=== PATIENT | male | born 1955 | race Caucasian/White ===

== ENCOUNTER 2016-09-06 21:47 | Emergency (ER) | payer MEDICARE, OTHER ==
[~2016-09-06] VITALS: Ht 182.9 cm; Wt 112.5 kg
[~2016-09-06 21:47] MED LIST: ACET-704 PO; ACET650T89 PO; FURO-68 PO; GLUC-99 PO; HYDR12.58 PO; METO50TA4 PO; MULT1TAB52 PO; OXYC20TA34 PO; PREG75CA PO; TAMS0.4C97 PO; WARF3TAB7 PO; WARF6TAB PO; heart med
[2016-09-06] MEDS ORDERED: VANCOMYCIN PER PHARMACY MC ONE (22:45)
[2016-09-06] MEDS ORDERED: VANCOMYCIN 1 GM VIAL. ONE ×2 (23:24)
[2016-09-06] MEDS ORDERED: IV NORMAL SALINE 500ML 500 ML ONE (23:24)
[2016-09-06] MEDS ORDERED: IV NORMAL SALINE 500ML 0 ML ONE (23:24)
[2016-09-06] MEDS ORDERED: VANCOMYCIN 2 GM in IV NORMAL SALINE 500ML 500 ML IV ONE (23:30)
[2016-09-06 23:37] LABS: BASO # 0.1 x10^3/uL (0.0-0.2); BASO % 0 % (0-3); EOS % 0 % (0-3); HEMATOCRIT 35.8 % (39.0-53.0); HEMOGLOBIN 12.4 g/dL (13.0-17.5); LYMPH # 0.8 x10^3/uL (1.0-4.8); LYMPH % 6 % (24-48); MEAN CORPUSCULAR HEMOGLOBIN 32 pg (25-35); MEAN CORPUSCULAR HGB CONC 35 g/dL (31-37); MEAN CORPUSCULAR VOLUME 93 fL (79-100); MONO # 0.9 x10^3/uL (0.0-1.1); MONO % 6 % (0-9); NEUT # 12.9 x10^3uL (1.8-7.7); NEUT % 88 % (31-73); PLATELET COUNT 153 x10^3/uL (140-400); RED BLOOD COUNT 3.86 x10^6/uL (4.30-5.70); RED CELL DISTRIBUTION WIDTH 13.9 % (11.5-14.5); WHITE BLOOD COUNT 14.8 x10^3/uL (4.0-11.0)
[2016-09-06 23:45] LABS: ALBUMIN 3.9 g/dL (3.4-5.0); C REACTIVE PROTEIN 30.3 mg/L (0-3.3); CALCIUM 8.7 mg/dL (8.5-10.1); CREATININE 1.3 mg/dL (0.7-1.3); DIRECT BILIRUBIN 0.4 mg/dL (0.0-0.2); GFR 55.8; POTASSIUM 3.4 mmol/L (3.5-5.1); TOTAL BILIRUBIN 1.7 mg/dL (0.2-1.0); TOTAL PROTEIN 7.3 g/dL (6.4-8.2)
[2016-09-07] MEDS ORDERED: HYDR-971 PO (00:16)
[2016-09-07] MEDS ORDERED: DOXY100T PO (00:16)
--- NOTE | 2016-09-07 00:19 | PHYS DOC ---
General Chief Complaint: KNEE INJURY Stated Complaint: RT KNEE INFECTION,FEVER Time Seen by MD: 22:24 Source: patient Exam Limitations: no limitations Problems: History of Present Illness Initial Comments Pt is 61/M to ED c/o right knee pain. Pt states he scraped his right knee about a week ago, had a healing scab. Past 24 hours noted swelling/redness/pain right knee, no drainage no joint pain or pain with passive ROM. +subjective fever/malaise/chills at home, febrile on arrival 100.6 F no tachycardia other VSS. No prearrival treatment, Td up to date, pt has h/o MRSA in past. PCP Dr Scott Onset: other Severity: moderate Pain/Injury Location: right knee Method of Injury: other Modifying Factors: worse with jarring, worse with movement, improves with rest Allergies: Coded Allergies: naproxen (Verified Allergy, Unknown, Rash, 08/31/15) Past Medical History Medical History: other (atrial fibrillation, MRSA, warfarin anticoagulation) Surgical History: pacemaker Social History Smoker: non-smoker Alcohol: none Drugs: none Review of Systems Constitutional: see HPI Respiratory: denies cough, denies shortness of breath, denies wheezing Cardiovascular: denies chest pain, denies palpitations, denies syncope Gastrointestinal: denies abdominal pain, denies nausea, denies vomiting Musculoskeletal: see HPI Skin: see HPI Psychiatric/Neurological: denies headache, denies numbness, denies paresthesia , denies weakness Physical Exam General Appearance: WD/WN, no apparent distress HEENT: normal ENT inspection Neck: non-tender, supple Cardiovascular/Respiratory: normal peripheral pulses, no respiratory distress Back: no CVA tenderness, no vertebral tenderness Knees: right knee normal range of motion, right knee other (cellulitic changes ant right knee with erythema/induration, healing scabbed lesion no purulence/ fluctuance. Painless active/passive ROM no bony TTP or palpable bone deformity) Neurologic/Tendon: normal sensation, normal motor functions, normal tendon functions, responds to pain, no evidence tendon injury Psychiatric: alert, oriented x 3 Skin: warm/dry (R knee as above) Orders, Labs, Meds R Knee: images interp by me, no acute osseous abnormality Leukocytosis noted, otherwise reassuring labs. I discussed tx options, specifically I discussed hospital admission for 24 h observation and IV antibiotics. Case could be made for inpt and outpt tx if good f/u. Pt refuses inpt tx, will f/u Dr Scott tomorrow requests discharge. Departure Time of Disposition: 00:17 Disposition: 01 HOME, SELF-CARE Diagnosis: R knee cellulitis, h/o MRSA Condition: GOOD Patient Instructions: Cellulitis, [id number], MRSA Infection, , Easy-to -Read Additional Instructions: Rest, no strenuous activity. Warm compresses 4 times daily. Activity as tolerated. Rx: doxycycline, norco 5mg #20 Take meds with food. Follow up with Dr Scott 09/08 for recheck. Return to ED if you change your mind and wish to be admitted, or have new/ changing symptoms. CHANTAL GILES DO September 07, 2016 00:18
[2016-09-07 00:31] LABS: SEDIMENTATION RATE 10 (0-15)
[2016-09-07 01:15] VITALS: BP 145/69
--- NOTE | 2016-09-07 07:40 | RAD ---
Right knee, 3 views, 09/06/2016: History: Laceration, injury There is moderate spurring at the knee joint and at the patellofemoral articulation. No acute fracture or dislocation is evident. There is moderate soft tissue swelling anteriorly. No definite joint effusion is seen. IMPRESSION: 1. Moderate hypertrophic degenerative change. 2. No acute bony abnormality is detected.
[2016-09-10] MEDS ORDERED: PIPE3.3734 IV (11:54)
[2016-09-10] MEDS ORDERED: LEVO500T59 PO (11:54)
[2016-09-10] MEDS ORDERED: ACET325T9 PO (11:54)
[2016-09-10] MEDS ORDERED: LIDO700A39 TD (11:54)
[2016-09-10] MEDS ORDERED: DOCU-109 PO (11:54)
[2016-09-10] MEDS ORDERED: POTA20TA4 PO (11:54)
== END 2016-09-07 01:50 | disposition home or self-care (01) ==
LOC: ER 21:47
DX: L03.115 Cellulitis of right lower limb (principal); B95.62 Methicillin resistant Staphylococcus aureus infection as the cause of diseases classified elsewhere; I48.91 Unspecified atrial fibrillation; Z95.0 Presence of cardiac pacemaker; Z88.6 Allergy status to analgesic agent
CPT/HCPCS: 36415; 73562; 80048; 80076; 83605; 85027; 85610; 85651; 85730; 86140; 87040; 96365; 96366; 99285; J3370; J7040; 96360; 96361

== ENCOUNTER 2016-09-07 16:57 | Inpatient (IN) | payer MEDICARE, OTHER ==
[~2016-09-07] VITALS: Ht 182.9 cm; Wt 115.8 kg
[~2016-09-07 16:57] MED LIST changes: +DOXY100T PO; +HYDR-971 PO
--- NOTE | 2016-09-07 17:11 | NUR ---
The patient, LILIANA SOLIZ, 61 y/o, M admitted by ALINA GUADALUPE MD, was given written information regarding hospital policies, unit procedures and contact persons. Patient admitted to room [address] Guadalupe's office and arrived on the unit at approx. 1710 via ambulation. Valuables were checked and left in room with patient. Vital signs assessed and patient oriented to the room.
[2016-09-07 17:39] LABS: BASO % 0 % (0-3); EOS # 0.1 x10^3/uL (0.0-0.7); EOS % 1 % (0-3); HEMATOCRIT 34.2 % (39.0-53.0); HEMOGLOBIN 11.6 g/dL (13.0-17.5); LYMPH # 1.1 x10^3/uL (1.0-4.8); LYMPH % 7 % (24-48); MEAN CORPUSCULAR HEMOGLOBIN 32 pg (25-35); MEAN CORPUSCULAR HGB CONC 34 g/dL (31-37); MEAN CORPUSCULAR VOLUME 93 fL (79-100); MONO # 1.3 x10^3/uL (0.0-1.1); MONO % 8 % (0-9); NEUT % 85 % (31-73); PLATELET COUNT 184 x10^3/uL (140-400); RED BLOOD COUNT 3.69 x10^6/uL (4.30-5.70); RED CELL DISTRIBUTION WIDTH 13.7 % (11.5-14.5); WHITE BLOOD COUNT 16.5 x10^3/uL (4.0-11.0)
[2016-09-07 17:48] LABS: ALBUMIN 3.7 g/dL (3.4-5.0); CALCIUM 8.5 mg/dL (8.5-10.1); CREATININE 1.2 mg/dL (0.7-1.3); GFR 61.1; POTASSIUM 3.2 mmol/L (3.5-5.1); TOTAL BILIRUBIN 1.6 mg/dL (0.2-1.0); TOTAL PROTEIN 7.3 g/dL (6.4-8.2)
[2016-09-07] MEDS: VANCOMYCIN 1.75 GM in IV NORMAL SALINE 500ML 500 ML IV SCH (18:20)
[2016-09-07 18:28] VITALS: BP 106/69
[2016-09-07 18:46] LABS: SEDIMENTATION RATE 29 (0-15)
[2016-09-07] MEDS: VANCOMYCIN PER PHARMACY MC PRN (19:11)
--- NOTE | 2016-09-07 19:11 | NUR ---
Pharmacy Vancomycin Dosing Note S:Consulted to monitor and dose vancomycin started 09/06/16. O:MARTÍNEZLILIANA Alcala is a 61 year old M with Cellulitis . Height: 6 feet, 0 inches Weight: 113.727425 kg [place] Body Weight: Adjusted Body Weight: Dosing Weight: Actual Other Antibiotics: LEVOFLOXACIN LABS: Last BUN: 17 Last Creatinine: 1.2 Creatinine Clearance: 1.2 Last WBC: 16.5 Last Platelets: Tmax (past 24 hours): Microbiology: I/O: Drug Levels: Last level: on at Last dose given 09/06/16 at 2330 Vancomycin Dosing: Loading Dose: 2000 mg x1 Dosing Weight: Actual Target Trough: 10-20 A: Based on: P: 1. Begin Vancomycin 1750 mg IV q12h 2. Follow up Trough level on 09/08/16 at 1730 3. Pharmacy will continue to monitor, follow and adjust therapy as needed. MICHELLE GOOD RP, 09/07/16 [id number]
--- NOTE | 2016-09-07 19:12 | NUR ---
LEVOFLOXACIN DOSING: crcl- 75.4mL/min, will give 500mg q 24hrs PO, cellulitis infection.
[2016-09-07 19:34] VITALS: BP 106/61
[2016-09-07 20:02] LABS: % BANDS 1 % (0-9); % EOS 4 % (0-5); % LYMPHS 15 % (24-48); % MONOS 5 % (0-10); % SEGS 75 % (35-66)
[2016-09-07 20:04] LABS: OVALOCYTES OCC; PLT ESTIMATE ADEQUATE (ADEQUATE); POLYCHROMASIA SLIGHT
[2016-09-07] MEDS: HYDROcodone/APAP 5/325MG 1 TAB TABLET PO PRN (20:45)
[2016-09-07] MEDS: PREGABALIN 75 MG CAPSULE PO SCH (20:45)
[2016-09-07 22:53] VITALS: BP 99/50
[2016-09-08] MEDS: HYDROcodone/APAP 5/325MG 1 TAB TABLET PO PRN ×4 (05:20→21:53)
[2016-09-08 05:31] VITALS: BP 117/67
[2016-09-08] MEDS ORDERED: VANCOMYCIN 750 MG VIAL. IV ONE (05:38)
[2016-09-08] MEDS ORDERED: IV NORMAL SALINE 500ML 500 ML ONE (05:39)
[2016-09-08] MEDS ORDERED: VANCOMYCIN 1 GM VIAL. ONE (05:44)
[2016-09-08] MEDS: VANCOMYCIN 1.75 GM in IV NORMAL SALINE 500ML 500 ML IV SCH (05:56)
[2016-09-08 06:22] LABS: BASO % 0 % (0-3); EOS # 0.3 x10^3/uL (0.0-0.7); EOS % 2 % (0-3); HEMOGLOBIN 11.9 g/dL (13.0-17.5); LYMPH % 7 % (24-48); MEAN CORPUSCULAR HEMOGLOBIN 32 pg (25-35); MEAN CORPUSCULAR HGB CONC 34 g/dL (31-37); MEAN CORPUSCULAR VOLUME 95 fL (79-100); MONO % 6 % (0-9); NEUT # 13.1 x10^3uL (1.8-7.7); NEUT % 85 % (31-73); PLATELET COUNT 127 x10^3/uL (140-400); RED CELL DISTRIBUTION WIDTH 14.3 % (11.5-14.5); WHITE BLOOD COUNT 15.4 x10^3/uL (4.0-11.0)
[2016-09-08 06:27] LABS: ALBUMIN 3.4 g/dL (3.4-5.0); ALBUMIN/GLOBULIN RATIO 0.9 (1.0-1.7); CALCIUM 8.4 mg/dL (8.5-10.1); GFR 75.5; MAGNESIUM 2.1 mg/dL (1.8-2.4); TOTAL BILIRUBIN 1.2 mg/dL (0.2-1.0); TOTAL PROTEIN 7.1 g/dL (6.4-8.2)
[2016-09-08 07:25] LABS: VANC TR 26.1 mcg/mL (10.0-20.0)
[2016-09-08] MEDS: VANCOMYCIN PER PHARMACY MC PRN (07:44)
--- NOTE | 2016-09-08 07:53 | NUR ---
Pharmacy Warfarin Dosing Note S:Pharmacy consulted to assist with anticoagulation therapy started with target INR: 2 -3 O:LILIANA SOLIZ is a 61 year old M with Atrial Fibrillation LABS: Last INR: 4.3 Last HGB: 11.9 Last HCT: 35.0 Last PLT: 127 Last dose of Hold given on at Previous Regimen: 6MG DAILY Vitamin K given: Drug Interaction Changes: Ongoing Drug Interactions: WILL HOLD DOSE UNTIL INR WITHIN NORMAL LIMITS A:INR Above desired Range. Target Range for this patient is: 2 -3 P: Warfarin dose: Hold Today at 1600 Bridge Therapy: Next INR due 09/09/16 Pharmacy anticoagulation service will continue to follow. TRE CARROLL, 09/08/16 0753
[2016-09-08] MEDS ORDERED: ACETAMINOPHEN 325 MG TABLET PO PRN (08:00)
[2016-09-08] MEDS: FUROSEMIDE 40 MG TABLET PO SCH (08:04)
[2016-09-08] MEDS: POTASSIUM CHLORIDE 20 MEQ TABLET.ER. PO SCH (08:04)
[2016-09-08] MEDS: levoFLOXacin 500 MG TABLET PO SCH (08:05)
[2016-09-08] MEDS: TAMSULOSIN 0.4 MG CAP.ER.24H. PO SCH (08:05)
[2016-09-08] MEDS: METOPROLOL SUCC 24HR ER 50 MG TAB.ER.24H. PO SCH (08:05)
[2016-09-08] MEDS: PREGABALIN 75 MG CAPSULE PO SCH ×2 (08:05→19:19)
[2016-09-08 11:26] VITALS: BP 109/54
[2016-09-08] MEDS: PIPERACILLIN/TAZOBACTAM 3.375 GM in IV NORMAL SALINE 50ML 50 ML IV SCH ×3 (12:59→23:53)
[2016-09-08] MEDS ORDERED: IV NORMAL SALINE 250ML 250 ML ONE (13:03)
--- NOTE | 2016-09-08 13:30 | NUR ---
Allergies and reactions Y INR BUN Cr Platelets Y Blood culture done Y blood culture results Order Verified Y Consent signed Y Previous PICC placement Y Past Medical/Surgical history and current diagnosis reviewed Patient Medical /Surgical History Related to PICC line placement None Special considerations for PICC line placement Anticoagulation therapy Infections PICC placement indication Caustic medication class drug usage, [facility] antibiotic usage, Multiple/ Frequent blood draws Name of PICC Nurse Toyin Adkins RN
--- NOTE | 2016-09-08 14:06 | NUR ---
Procedure: Following complete explanation of the PICC procedure including the indications, risks, and potential complications, informed consent was obtained. The possibility for infection was discussed along with signs, symptoms, and prevention. All the questions were answered. IV Device Protocol was used. Written and verbal patient education was provided. Hand hygiene performed. Standardized central line checklist was utilized. The patient was placed in the supine position, the arm was prepped with chlorhexidine and patient draped with maximum sterile barrier. 2 mL 1% lidocaine was infiltrated into the skin to provide local anesthesia. A thorough assessment of Right upper extremity completed. Using real-time ultrasound guidance and standardized micro puncture set, the basilic vein was punctured and a peel away sheath was placed using the modified Seldinger technique. A tip location device was used to ensure adequate catheter placement. The catheter was secured using a securement device and an antimicrobial patch was applied directly on the insertion site followed by a transparent dressing. All ports withdraw blood and flush without resistance. Patient tolerated the procedure without apparent complication(s). Single Lumen Power PICC placement successful and uncomplicated. Placement verified by EKG tip confirmation system and/or chest x-ray. Complications: None Toyin Adkins RN
--- NOTE | 2016-09-08 14:28 | RAD ---
Indication: PICC line placement. Technique: Upright portable chest radiograph was obtained and compared to a study from September 16, 2014. Findings: Right PICC line has been placed. The tip is directed down the SVC, the exact position of the tip is difficult to determine although it appears to stop short of the atrium. Single lead pacemaker placed via left subclavian approach is noted. The lungs are clear. There is no pneumothorax or pleural effusion. The heart is not enlarged and there is no heart failure. Impression: Right PICC line placement without evidence of complication.
[2016-09-08] MEDS ORDERED: WARFARIN 6 MG TABLET. PO SCH (16:00)
[2016-09-08 16:22] VITALS: BP 113/59
[2016-09-08 19:24] VITALS: BP 117/79
--- NOTE | 2016-09-08 19:31 | PN ---
DATE: 09/08/2016 SUBJECTIVE: A 61-year-old gentleman admitted yesterday with cellulitis to his left leg. The patient has been on vancomycin received in the Emergency Room night before he was admitted and the day he was admitted and unfortunately it shows actually spreading of the infection upper leg and down the leg. There is an outline produced where he first came in and actually has progressed as indicated from the situation from the outline; therefore, ____ lymphangitis. He did have couple episodes of night sweats, obviously he is septic. His white count still 15,000. His temperature has remained stable at 98.3 year so that range and his pulse really has not show much variation, however, this night sweats and previous night of a temperature of 102.5 points to sepsis. The patient otherwise continues on IV antibiotic therapy. OBJECTIVE: VITAL SIGNS: Blood pressure 110/50, respiratory rate 20, pulse 70, afebrile. GENERAL: The patient is alert and oriented. LUNGS: Clear. CARDIOVASCULAR: Regular sinus rhythm. EXTREMITIES: The left leg shows the outline. There is a little less redness, but the spreading up the leg especially on the lateral sign of left leg and down the medial aspect of the lower right leg. It is concerning as well as this nodular area in the middle. X-rays were taken in the Emergency Room they showed some degenerative changes, but nothing obvious, moderate soft tissue swelling was noted at that time. We will go ahead and try to get a bone scan on him and make sure it was nothing in the bone. IMPRESSION: Therefore, sepsis, cellulitis of the left leg with lymphangitis. The patient gets PICC line. We will change him over from vancomycin since he has not responded to the vancomycin to piperacillin in case is there any type of pseudomonal activity in this. Anyway he will continue with IV antibiotic therapy and make further evaluation as indicated above. ALINA GUADALUPE MD DR: ROSHNI/daniela JOB#: [id number] / [id number]
[2016-09-09] MEDS: HYDROcodone/APAP 5/325MG 1 TAB TABLET PO PRN ×3 (04:51→21:18)
[2016-09-09 04:55] VITALS: BP 143/81
[2016-09-09] MEDS: PIPERACILLIN/TAZOBACTAM 3.375 GM in IV NORMAL SALINE 50ML 50 ML IV SCH ×3 (04:55→17:26)
[2016-09-09] MEDS: POTASSIUM CHLORIDE 20 MEQ TABLET.ER. PO SCH ×2 (08:01→17:25)
--- NOTE | 2016-09-09 08:02 | NUR ---
Pharmacy Warfarin Dosing Note S:Pharmacy consulted to assist with anticoagulation therapy started with target INR: 2 -3 O:LILIANA SOLIZ is a 61 year old M with Atrial Fibrillation LABS: Last INR: 2.2 Last HGB: 11.9 Last HCT: 35.0 Last PLT: 127 Last dose of Hold given on at Previous Regimen: 6MG DAILY Vitamin K given: Drug Interaction Changes: Ongoing Drug Interactions: WILL HOLD DOSE UNTIL INR WITHIN NORMAL LIMITS A:INR Within desired Range. Target Range for this patient is: 2 -3 P: Warfarin dose: 3 mg Today at 1600 Bridge Therapy: None Next INR due 09/10/2016 Pharmacy anticoagulation service will continue to follow. TRE CARROLL, 09/09/16 0802
[2016-09-09] MEDS: DOCUSATE SODIUM 100 MG CAPSULE PO SCH (08:40)
[2016-09-09] MEDS: TAMSULOSIN 0.4 MG CAP.ER.24H. PO SCH (08:41)
[2016-09-09] MEDS: PREGABALIN 75 MG CAPSULE PO SCH ×2 (08:41→21:18)
[2016-09-09] MEDS: FUROSEMIDE 40 MG TABLET PO SCH (08:43)
[2016-09-09] MEDS: METOPROLOL SUCC 24HR ER 50 MG TAB.ER.24H. PO SCH (08:44)
[2016-09-09] MEDS: levoFLOXacin 500 MG TABLET PO SCH (08:44)
--- NOTE | 2016-09-09 09:14 | PN ---
DATE: 09/08/2016 ADDENDUM: This is a correction on Nayan Heck. I think I put down left lower leg, it was his right lower leg that has the infection. So, if you could go and do modify his progress note ____ left should be right lower leg and up the right thigh and down the right lower leg, I would appreciate it. ALINA GUADALUPE MD DR: ROSHNI/daneila JOB#: [id number] / [id number]
--- NOTE | 2016-09-09 10:53 | NUR ---
wound care patient seen per wound care consult. see wound assessment. patient has cellulitis to the right knee, from looking at the pictures and comparing to today, the redness is going down, the abrasion is a scabbed area over the knee. recommendations of leaving SENIOR CARE MANAGER. wound care is signing off at this time, please reconsult if the integumentary assessment changes.
[2016-09-09] MEDS: LIDOCAINE (700MG/PATCH) PATCH. TD SCH (10:58)
[2016-09-09] MEDS ORDERED: PREGABALIN 75 MG CAPSULE PO SCH (11:00)
[2016-09-09 12:11] VITALS: BP 117/70
[2016-09-09] MEDS ORDERED: WARFARIN 3 MG TABLET. PO ONE (16:00)
[2016-09-09 18:45] VITALS: BP 118/69
[2016-09-09 19:25] VITALS: BP 113/72
[2016-09-10] MEDS: PIPERACILLIN/TAZOBACTAM 3.375 GM in IV NORMAL SALINE 50ML 50 ML IV SCH ×3 (01:28→11:55)
--- NOTE | 2016-09-10 03:33 | PN ---
DATE: 09/07/2016 SUBJECTIVE: A 61-year-old gentleman with cellulitis and sepsis related to his right knee. The patient's white count has come down somewhat, although the patient still has significant amount of pain in the knee. We changed them over yesterday from vancomycin to Zosyn and that seems to have cut down on some of redness and lymphangitis that was occurring. OBJECTIVE: His blood pressure is 120/70, respiratory rate 18, and pulse is 70. He is afebrile presently. The patient is alert and oriented, but pain is 8-9/10. The patient's leg still shows swelling and tenderness to that left kneecap area with erythema extending up, but not quite as bad as it was yesterday, so there is marked improvement. Pulses noted distally on the right leg. ASSESSMENT AND PLAN: The patient continues to make good progress on Zosyn and will get an MRI scan of that area and make further evaluation on him as indicated otherwise. Sepsis and cellulitis of the right leg with lymphangitis and recurrent infection to the knee area. We will get the MRI scan and make further evaluation. Otherwise, continued on Zosyn. Continue with PICC line usage. ALINA GUADALUPE MD DR: ROSHNI/daniela JOB#: [id number] / [id number]
[2016-09-10 05:47] VITALS: BP 117/74
[2016-09-10 05:56] LABS: BASO % 1 % (0-3); EOS # 0.5 x10^3/uL (0.0-0.7); EOS % 8 % (0-3); HEMATOCRIT 32.1 % (39.0-53.0); LYMPH # 1.2 x10^3/uL (1.0-4.8); LYMPH % 17 % (24-48); MEAN CORPUSCULAR HEMOGLOBIN 32 pg (25-35); MEAN CORPUSCULAR HGB CONC 34 g/dL (31-37); MEAN CORPUSCULAR VOLUME 94 fL (79-100); MONO # 0.6 x10^3/uL (0.0-1.1); MONO % 9 % (0-9); NEUT # 4.7 x10^3uL (1.8-7.7); NEUT % 66 % (31-73); PLATELET COUNT 197 x10^3/uL (140-400); RED BLOOD COUNT 3.42 x10^6/uL (4.30-5.70); RED CELL DISTRIBUTION WIDTH 13.8 % (11.5-14.5)
[2016-09-10 06:02] LABS: CALCIUM 8.4 mg/dL (8.5-10.1); CREATININE 0.9 mg/dL (0.7-1.3); GFR 85.2; POTASSIUM 4.1 mmol/L (3.5-5.1)
--- NOTE | 2016-09-10 07:58 | NUR ---
Pharmacy Warfarin Dosing Note S:Pharmacy consulted to assist with anticoagulation therapy started with target INR: 2 -3 O:LILIANA SOLIZ is a 61 year old M with Atrial Fibrillation LABS: Last INR: 1.6 Last HGB: 11 Last HCT: 32.1 Last PLT: 197 Last dose of 3 mg given on 09/09/16 at 1638 Previous Regimen: 6MG DAILY Vitamin K given: Drug Interaction Changes: New Interacting Drug Ongoing Drug Interactions: LEVAQUIN ZOSYN A:INR Below desired Range. Target Range for this patient is: 2 -3 P: Warfarin dose: 5 mg Today at 1600 Bridge Therapy: pt had been supra therapeutic Next INR due 09/11/16 Pharmacy anticoagulation service will continue to follow. CHAS GARBER, 09/10/16 [id number]
[2016-09-10] MEDS: POTASSIUM CHLORIDE 20 MEQ TABLET.ER. PO SCH ×2 (08:00→08:35)
--- NOTE | 2016-09-10 08:33 | NUR ---
IP: patient has hx MRSA + nasal screen 03-28-11. Requires contact precautions until 2 negative results 7 days apart.
[2016-09-10] MEDS: levoFLOXacin 500 MG TABLET PO SCH (08:34)
[2016-09-10] MEDS: DOCUSATE SODIUM 100 MG CAPSULE PO SCH (08:35)
[2016-09-10] MEDS: TAMSULOSIN 0.4 MG CAP.ER.24H. PO SCH (08:36)
[2016-09-10] MEDS: FUROSEMIDE 40 MG TABLET PO SCH (08:36)
[2016-09-10] MEDS: METOPROLOL SUCC 24HR ER 50 MG TAB.ER.24H. PO SCH (08:36)
[2016-09-10] MEDS: PREGABALIN 75 MG CAPSULE PO SCH (08:36)
[2016-09-10] MEDS: LIDOCAINE (700MG/PATCH) PATCH. TD SCH (08:37)
[2016-09-10] MEDS ORDERED: LIDOCAINE (700MG/PATCH) PATCH. TD SCH (09:00)
[2016-09-10 11:46] VITALS: BP 121/64
[2016-09-10] MEDS ORDERED: LIDO700A39 TD (11:54)
[2016-09-10] MEDS ORDERED: PIPE3.3734 IV (11:54)
[2016-09-10] MEDS ORDERED: POTA20TA4 PO (11:54)
[2016-09-10] MEDS ORDERED: ACET325T9 PO (11:54)
[2016-09-10] MEDS ORDERED: DOCU-109 PO (11:54)
[2016-09-10] MEDS ORDERED: LEVO500T59 PO (11:54)
[2016-09-10] MEDS: HYDROcodone/APAP 5/325MG 1 TAB TABLET PO PRN (12:01)
--- NOTE | 2016-09-10 13:36 | NUR ---
pt discharged. pt verbalized understanding of d/c instructions and outpatient iv instructions. picc line left in place for outpt iv infusion. pt walked to front door to discharge
[2016-09-10] MEDS ORDERED: WARFARIN 5 MG TABLET. PO ONE (16:00)
== END 2016-09-10 14:04 | disposition home or self-care (01) | DRG 872 ==
LOC: 1 SOUTH 16:57
PROVIDERS: ADMIT Family Medicine; ATTEND Family Medicine
PROC: 02HV33Z Insertion of Infusion Device into Superior Vena Cava, Percutaneous Approach (ICD-10-PCS; principal; 2016-09-08)
DX: A41.9 Sepsis, unspecified organism (principal); L03.115 Cellulitis of right lower limb; L03.116 Cellulitis of left lower limb; F15.90 Other stimulant use, unspecified, uncomplicated; Z96.661 Presence of right artificial ankle joint; Z80.42 Family history of malignant neoplasm of prostate; Z82.49 Family history of ischemic heart disease and other diseases of the circulatory system
CPT/HCPCS: 36415; 36569; 71010; 73562; 80048; 80053; 80076; 80202; 83605; 83735; 85007; 85027; 85610; 85651; 85730; 86140; 87040; J2543; J3370; J7040; J7050

== ENCOUNTER → 2017-07-18 | Outpatient (CLI) | payer MEDICARE, OTHER ==
[2016-09-24 06:24] VITALS: BP 136/84
[~2017-07-18] MED LIST changes: +ACET325T9 PO; +DOCU-109 PO; +LEVO500T59 PO; +LIDO700A39 TD; +PIPE3.3734 IV; +POTA20TA4 PO; +WARF3TAB50 PO; -WARF3TAB7 PO
--- NOTE | 2017-07-18 11:52 | RAD ---
CT of the right knee without contrast, 07/18/2017: History: Knee pain, previous surgery and infection Noncontrast scans were obtained as requested with multiplanar reconstructions produced. No fracture or destructive bony lesion is seen. There is mild narrowing of the medial compartment of the knee joint there is moderate marginal spurring at the knee joint. There is considerable spurring at the patellofemoral articulation, most prominent laterally. There is a small knee joint effusion. The posterior cruciate ligament appears intact. The anterior cruciate ligament and menisci are not adequately delineated. There is moderate prepatellar streaky subcutaneous edema. No discrete periarticular fluid collection is seen to suggest abscess. IMPRESSION: 1. Moderately hypertrophic degenerative change at the knee joint. 2. Small knee joint effusion. 3. Moderate prepatellar subcutaneous edema. 4. No acute bony abnormality is detected. PQRS Compliance Statement: One or more of the following individualized dose reduction techniques were utilized for this examination: 1. Automated exposure control 2. Adjustment of the mA and/or kV according to patient size 3. Use of iterative reconstruction technique
== END | disposition home or self-care (01) ==
LOC: CT 11:11
PROVIDERS: ATTEND Family Medicine
DX: M25.461 Effusion, right knee (principal); M17.11 Unilateral primary osteoarthritis, right knee; R60.0 Localized edema
CPT/HCPCS: 73700

== ENCOUNTER 2018-02-15 11:57 | Emergency (ER) | payer MEDICARE, OTHER ==
[~2018-02-15] VITALS: Ht 182.9 cm; Wt 117.9 kg
[2018-02-15 12:05] VITALS: BP 133/64
[2018-02-15] MEDS ORDERED: DIPHTH,PERTUSS(ACELL),TET TOX 0.5 ML DISP.SYRIN. VAX IM ONE ×2 (13:22→13:30)
--- NOTE | 2018-02-15 15:40 | PHYS DOC ---
Past History Past Medical History: A-Fib, CAD, CHF, Stroke Past Surgical History: Pacemaker, Other Smoking: Non-smoker Alcohol Use: Rarely Drug Use: None Adult General Chief Complaint Chief Complaint: HAND PROBLEM HPI HPI Patient is a 63-year-old male presenting with laceration to his palm. He was working with a saw injury the affected palm he is on Coumadin so bleeding has persisted. Unknown last tetanus shot pain is mild nonradiating to the affected area has not tried anything for relief Review of Systems Review of Systems te. Current Medications Current Medications Current Medications Medications (Trade) Dose Ordered Sig/Aisha Start Time Stop Time Status Last Admin Dose Admin Diphtheria/ Tetanus/Acell Pertussis (Boostrix) 0.5 ml STK-MED ONCE 02/15/18 13:22 02/15/18 13:23 DC Allergies Allergies Allergies Coded Allergies Type Severity Reaction Last Updated Verified I S O L A T I O N *CONTACT* Allergy Unknown 09/10/16 Yes naproxen Allergy Unknown Rash 08/31/15 Yes Physical Exam Physical Exam Constitutional: Well developed, well nourished, no acute distress, non-toxic appearance. [] HENT: Normocephalic, atraumatic, bilateral external ears normal, oropharynx moist, no oral exudates, nose normal. [] Abdomen: Bowel sounds normal, soft, no tenderness, no masses, no pulsatile masses. [] Skin: Warm, dry, no erythema, no rash. [] Back: No tenderness, no CVA tenderness. [] Extremities: On the affected thumb there is an abrasion laterally and then there is a 4 cm laceration deep to the subcutaneous tissue on the palmar aspect it does not involve the tendons patient has intact FDS and FDP function in both fingers Neurologic: Alert and oriented X 3, normal motor function, normal sensory function, no focal deficits noted. [] Psychologic: Affect normal, judgement normal, mood normal. [] Current Patient Data Vital Signs Vital Signs Date Time Temp Pulse Resp B/P (MAP) Pulse Ox O2 Delivery O2 Flow Rate FiO2 02/15/18 12:05 97.5 70 18 97 Room Air EKG EKG [] Radiology/Procedures Radiology/Procedures [] Course & Med Decision Making Course & Med Decision Making Pertinent Labs and Imaging studies reviewed. (See chart for details) []Tetanus was given laceration repair: Verbal consent was obtained area was prepped and draped in the usual sterile fashion profuse irrigation no foreign body no visible tendon laceration was seen it was closed the skin with 5-0 nylon simple interrupted sutures total 4 cm patient tolerated well wound care precautions were given. Dragon Disclaimer Dragon Disclaimer This electronic medical record was generated, in whole or in part, using a voice recognition dictation system. Departure Departure: Impression: Primary Impression: Laceration Disposition: HOME, SELF-CARE Condition: STABLE Patient Instructions: Laceration Care, Adult, [id number] Additional Instructions: suture removal ten days ADY GOMEZ MD Feb 15, 2018 15:40
== END 2018-02-15 13:30 | disposition home or self-care (01) ==
LOC: ER 11:57
DX: S61.412A Laceration without foreign body of left hand, initial encounter (principal); I48.91 Unspecified atrial fibrillation; I25.10 Atherosclerotic heart disease of native coronary artery without angina pectoris; I50.9 Heart failure, unspecified; Z86.73 Personal history of transient ischemic attack (TIA), and cerebral infarction without residual deficits; Z95.0 Presence of cardiac pacemaker; Z91.041 Radiographic dye allergy status; Z88.6 Allergy status to analgesic agent; W27.8XXA Contact with other nonpowered hand tool, initial encounter; Y93.89 Activity, other specified; Y92.89 Other specified places as the place of occurrence of the external cause; Y99.8 Other external cause status
CPT/HCPCS: 12002; 90471; 90715; 99283-25

== ENCOUNTER → 2018-03-10 | Outpatient (CLI) | payer MEDICARE, OTHER ==
[2018-02-15 12:05] VITALS: BP 133/64
[~2018-03-10] MED LIST changes: +HYDR-3165 PO; -HYDR-971 PO; -OXYC20TA34 PO; +OXYC20TA35 PO
--- NOTE | 2018-03-10 17:01 | RAD ---
CT study of the cervical spine without contrast Clinical indications: Radiculopathy bilaterally of the upper extremities. TECHNIQUE: Noncontrast helical CT scanning of the cervical spine was performed. Multiplanar 2-D reconstructions were generated. PQRS compliance Statement One or more of the following individualized dose reduction techniques were utilized for this study: 1. Automated exposure control 2. Adjustment of the mA and/or kV according to patient size 3. Use of iterative reconstruction technique COMPARISON: None available. FINDINGS: No acute fracture or discitis or osteolytic process or anterolisthesis is evident. There is partial autofusion of the C3-4 disc space. There is moderate to severe degenerative disc space narrowing and endplate spurring at C5-6 and C6-7 and C7-T1. There is a mild disc osteophyte complex at C5-C6 worse on the left side with mild spinal canal stenosis. There is a moderate diffuse disc osteophyte complex at C6-7 with a mild spinal canal stenosis. There is mild diffuse disc osteophyte complex at C7-T1 without spinal canal stenosis. There is moderate narrowing of the right neural foramen and mild narrowing of the left neural foramen at C2-3. There is moderate narrowing of the neural foramen bilaterally at C3-4. There is moderate to severe narrowing of the left neural foramen and mild narrowing of the right neural foramen at C4-5. There is mild narrowing of the neural foramina bilaterally at C5-6. There is moderate narrowing of the left neural foramen and mild narrowing of the right neural foramen at C6-7. IMPRESSION: Degenerative cervical spondylosis. Mild disc osteophyte complex at C5-6 worse on the left side and moderate diffuse disc osteophyte complex at C6-7 with mild spinal canal stenosis at both levels. Electronically signed by: Celso Dunaway MD (03/10/2018 4:58 PM) [place] [id number]
== END | disposition home or self-care (01) ==
LOC: CT 15:21
PROVIDERS: ATTEND Family Medicine
DX: M47.892 Other spondylosis, cervical region (principal); M48.02 Spinal stenosis, cervical region; M25.78 Osteophyte, vertebrae; M46.02 Spinal enthesopathy, cervical region
CPT/HCPCS: 72125

== ENCOUNTER 2018-04-30 17:35 | Inpatient (IN) | payer MEDICARE, OTHER ==
[~2018-04-30] VITALS: Ht 182.9 cm; Wt 118.6 kg
--- NOTE | 2018-04-30 18:11 | PHYS DOC ---
Past History Past Medical History: A-Fib, CAD, CHF, Stroke Past Surgical History: Pacemaker, Other Smoking: Non-smoker Alcohol Use: Rarely Drug Use: None Adult General Chief Complaint Chief Complaint: UPPER EXTREMITY INJURY HPI HPI 63-year-old male presents with left arm bruising and swelling. The patient is on Coumadin. The patient fell on asphalt 4 days ago and landed on his left elbow. He had it x-rayed by his PCP and there was no fracture. Since that time, the patient has had significant increased anion bruising on the medial side of his mid humerus down to his hand. He is also had some significant swelling. The skin on the posterior elbow feels very warm and is erythematous. Patient states that his sensation in the hand is decreased though he retains full range of motion and strength. Patient did have a fever when he saw his PCP again today of 100.9. His PCP sent him to the emergency room. Has a history of cellulitis. Review of Systems Review of Systems Constitutional: Fever[] Eyes: Denies change in visual acuity, redness, or eye pain [] HENT: Denies nasal congestion or sore throat [] Respiratory: Denies cough or shortness of breath [] Cardiovascular: No additional information not addressed in HPI [] GI: Denies abdominal pain, nausea, vomiting, bloody stools or diarrhea [] : Denies dysuria or hematuria [] Musculoskeletal: Left elbow pain, swelling, bruising[] Integument: Erythematous skin over the posterior left elbow, warm to the touch.[ ] Neurologic: Denies headache, focal weakness. decreased sensation of touch in left hand [] Endocrine: Denies polyuria or polydipsia [] All other systems were reviewed and found to be within normal limits, except as documented in this note. Allergies Allergies Allergies Coded Allergies Type Severity Reaction Last Updated Verified I S O L A T I O N *CONTACT* Allergy Unknown 09/10/16 Yes naproxen Allergy Unknown Rash 08/31/15 Yes Physical Exam Physical Exam Constitutional: Well developed, well nourished, no acute distress, non-toxic appearance. [] HENT: Normocephalic, atraumatic, bilateral external ears normal, oropharynx moist, no oral exudates, nose normal. [] Eyes: PERRLA, EOMI, conjunctiva normal, no discharge. [] Neck: Normal range of motion, no tenderness, supple, no stridor. [] Cardiovascular:Heart rate regular rhythm, no murmur [] Lungs & Thorax: Bilateral breath sounds clear to auscultation [] Abdomen: Bowel sounds normal, soft, no tenderness, no masses, no pulsatile masses. [] Skin: Left arm erythema, ecchymosis, warmth to the touch on the posterior aspect left elbow[] Back: No tenderness, no CVA tenderness. [] Extremities: No tenderness, no cyanosis, no clubbing, ROM intact, no edema. [] Neurologic: Alert and oriented X 3, normal motor function, no focal deficits noted. [] Psychologic: Affect normal, judgement normal, mood normal. [] Current Patient Data Vital Signs Vital Signs Date Time Temp Pulse Resp B/P (MAP) Pulse Ox O2 Delivery O2 Flow Rate FiO2 04/30/18 17:57 98.2 74 18 96 Room Air EKG EKG [] Radiology/Procedures Radiology/Procedures [] Impressions: Examination: CT HEAD AND CERVICAL SPINE WO History: Fall x 5 days, neck and left sided shoulder and arm pain Comparison/Correlation: 01/24/2017 CT head without contrast mild atrophy noted. No intracranial hemorrhage, midline shift, or mass effect. Findings: Axial images of the head and cervical spine were obtained. Sagittal and coronal reformatted images of the cervical spine were provided. Chronic paranasal sinusitis is present. Fluid level in the right maxillary sinus is present. Atlantoaxial joint degenerative remodeling is present. No significant lordosis of the cervical spine. Mild C3-4 disc space narrowing is present. Moderate to severe C5-6 and C6/7 disc space narrowing. Bony encroachment on the neural foramina bilaterally is mild at C6/7. Moderate left C4-5 neural foraminal narrowing due to bony encroachment is evident. T1 and T2 distal spinous process deformity is noted. 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 Correlate with history. Soft tissues of the neck are unremarkable. Left-sided catheter which appears represent a PICC is partially seen. Impression: Degenerative changes of the cervical spine. T1 and T2 spinous processes deformities which may represent old fracture injury or possibly developmental variants noted. Correlate with history. No conclusive finding for acute fracture. No intracranial hemorrhage. Fluid level in the right maxillary sinus may represent acute sinusitis. Electronically signed by: Nestor Crystal MD (04/30/2018 6:37 PM) [facility] DICTATED AND SIGNED BY: NESTOR CRYSTAL MD DATE: 04/30/181830 CC: SERGIO MAIER DO; ALINA GUADALUPE MD Examination: VENOUS UPPER EXTREMITY LEFT History: pt fell from ladder 4 days ago
lue pain, swelling, bruising
neg xrays at dr office 2 days ago

3 brach vns - one clotted ac to axilla -no comp, no color, some flow w/ Doppler
LT med wrist 2 cystic areas ? ganglion Comparison/Correlation: None Findings: Left upper extremity venous duplex ultrasound exam was performed. Grayscale, color Doppler, and spectral Doppler imaging was performed. Compression utilized. Left internal jugular and subclavian vein are unremarkable. There is thrombus identified within one of 3 brachial veins identified extending from the axilla to the antecubital fossa. No flow identified within the distribution of this vein. The left cephalic, radial, and ulnar veins are unremarkable. Left basilic vein is patent. There are 2 cystic structures identified involving the medial wrist region. One of these measure 0.6 cm diameter and the other measures 0.5 cm. These probably represent ganglion cysts. Impression: Acute thrombus involving a brachial vein extending from the axilla to the antecubital fossa. This exam is positive for left upper extremity deep venous thrombus. At 04/30/2017 at 8:09 PM, results reported to Dr. Maier. Electronically signed by: Nestor Crystal MD (04/30/2018 8:09 PM) [facility] DICTATED AND SIGNED BY: NESTOR CRYSTAL MD DATE: 04/30/181958 CC: SERGIO MAIER DO; ALINA GUADALUPE MD Course & Med Decision Making Course & Med Decision Making Pertinent Labs and Imaging studies reviewed. (See chart for details) The patient does have an elevated white count. He had a fever at home that went down with Tylenol. We did not have a fever in the emergency room. I'm going to treat him with vancomycin and Zosyn for his skin infection. His head and neck CT was negative for acute findings. His upper extremity ultrasound is pending. Patient's ultrasound does show a DVT from his antecubital fossa to his axilla. The patient is on Coumadin. His INR is 2.5. I discussed the patient with Dr. Guadalupe and he has accepted him for admission to the hospital. [] Dragon Disclaimer Dragon Disclaimer This electronic medical record was generated, in whole or in part, using a voice recognition dictation system. Departure Departure: Impression: Primary Impression: Deep vein thrombosis (DVT) of left upper extremity Additional Impression: Cellulitis of left upper extremity Disposition: 09 ADMITTED INPATIENT Condition: GUARDED Referrals: ALINA GUADALUPE MD (PCP) Problem Qualifiers SERGIO MAIER DO Apr 30, 2018 18:11
[2018-04-30 18:37] LABS: BASO # 0.1 x10^3/uL (0.0-0.2); BASO % 1 % (0-3); EOS # 0.1 x10^3/uL (0.0-0.7); EOS % 1 % (0-3); HEMATOCRIT 36.5 % (39.0-53.0); HEMOGLOBIN 12.2 g/dL (13.0-17.5); LYMPH # 1.2 x10^3/uL (1.0-4.8); LYMPH % 9 % (24-48); MEAN CORPUSCULAR HEMOGLOBIN 32 pg (25-35); MEAN CORPUSCULAR HGB CONC 33 g/dL (31-37); MEAN CORPUSCULAR VOLUME 96 fL (79-100); MONO # 0.8 x10^3/uL (0.0-1.1); MONO % 6 % (0-9); NEUT # 11.1 x10^3uL (1.8-7.7); NEUT % 83 % (31-73); PLATELET COUNT 215 x10^3/uL (140-400); RED BLOOD COUNT 3.82 x10^6/uL (4.30-5.70); RED CELL DISTRIBUTION WIDTH 14.1 % (11.5-14.5); WHITE BLOOD COUNT 13.2 x10^3/uL (4.0-11.0)
--- NOTE | 2018-04-30 18:41 | RAD ---
Examination: CT HEAD AND CERVICAL SPINE WO History: Fall x 5 days, neck and left sided shoulder and arm pain Comparison/Correlation: 01/24/2017 CT head without contrast mild atrophy noted. No intracranial hemorrhage, midline shift, or mass effect. Findings: Axial images of the head and cervical spine were obtained. Sagittal and coronal reformatted images of the cervical spine were provided. Chronic paranasal sinusitis is present. Fluid level in the right maxillary sinus is present. Atlantoaxial joint degenerative remodeling is present. No significant lordosis of the cervical spine. Mild C3-4 disc space narrowing is present. Moderate to severe C5-6 and C6/7 disc space narrowing. Bony encroachment on the neural foramina bilaterally is mild at C6/7. Moderate left C4-5 neural foraminal narrowing due to bony encroachment is evident. T1 and T2 distal spinous process deformity is noted. 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 Correlate with history. Soft tissues of the neck are unremarkable. Left-sided catheter which appears represent a PICC is partially seen. Impression: Degenerative changes of the cervical spine. T1 and T2 spinous processes deformities which may represent old fracture injury or possibly developmental variants noted. Correlate with history. No conclusive finding for acute fracture. No intracranial hemorrhage. Fluid level in the right maxillary sinus may represent acute sinusitis. Electronically signed by: Nestor Bustillo MD (04/30/2018 6:37 PM) [facility]
[2018-04-30 18:53] LABS: ALBUMIN 3.7 g/dL (3.4-5.0); CALCIUM 8.7 mg/dL (8.5-10.1); CREATININE 0.9 mg/dL (0.7-1.3); GFR 84.7; POTASSIUM 3.8 mmol/L (3.5-5.1); TOTAL BILIRUBIN 0.8 mg/dL (0.2-1.0); TOTAL PROTEIN 7.4 g/dL (6.4-8.2)
[2018-04-30] MEDS ORDERED: PIPERACILLIN/TAZOBACTAM 3.375 GM in IV NORMAL SALINE 50ML 50 ML IV ONE (19:45)
[2018-04-30 19:47] LABS: BILIRUBIN,URINE NEG (NEG); CLARITY,URINE CLEAR; COLOR,URINE YELLOW; GLUCOSE,URINE NEG (NEG); NITRITE,URINE NEG (NEG); UROBILINOGEN,URINE 0.2 mg/dL (0.2 mg/dL)
[2018-04-30 19:48] LABS: BACTERIA,URINE 0 /HPF (0-FEW); RBC,URINE OCC /HPF (0-2); SQUAMOUS EPITHELIAL CELL,UR FEW /LPF; WBC,URINE OCC /HPF (0-4)
[2018-04-30] MEDS ORDERED: VANCOMYCIN 2 GM in IV NORMAL SALINE 500ML 500 ML IV ONE (20:00)
[2018-04-30] MEDS ORDERED: IV NORMAL SALINE 50ML 50 ML ONE (20:01)
[2018-04-30] MEDS ORDERED: PIPERACILLIN/TAZOBACTAM 3.375 GM VIAL IV ONE (20:01)
--- NOTE | 2018-04-30 20:13 | RAD ---
Examination: VENOUS UPPER EXTREMITY LEFT History: pt fell from ladder 4 days ago
lue pain, swelling, bruising
neg xrays at dr office 2 days ago

3 brach vns - one clotted ac to axilla -no comp, no color, some flow w/ Doppler
LT med wrist 2 cystic areas ? ganglion Comparison/Correlation: None Findings: Left upper extremity venous duplex ultrasound exam was performed. Grayscale, color Doppler, and spectral Doppler imaging was performed. Compression utilized. Left internal jugular and subclavian vein are unremarkable. There is thrombus identified within one of 3 brachial veins identified extending from the axilla to the antecubital fossa. No flow identified within the distribution of this vein. The left cephalic, radial, and ulnar veins are unremarkable. Left basilic vein is patent. There are 2 cystic structures identified involving the medial wrist region. One of these measure 0.6 cm diameter and the other measures 0.5 cm. These probably represent ganglion cysts. Impression: Acute thrombus involving a brachial vein extending from the axilla to the antecubital fossa. This exam is positive for left upper extremity deep venous thrombus. At 04/30/2017 at 8:09 PM, results reported to Dr. Vidal. Electronically signed by: Nestor Bustillo MD (04/30/2018 8:09 PM) [facility]
[2018-04-30] MEDS ORDERED: ONDANSETRON PF 4 MG/2 ML VIAL. IV PRN (20:45)
[2018-04-30] MEDS ORDERED: ACETAMINOPHEN 325 MG TABLET PO PRN ×2 (20:45→21:45)
[2018-04-30] MEDS ORDERED: MORPHINE SULFATE 2 MG/ML DISP.SYRIN. IV PRN (20:45)
[2018-04-30] MEDS ORDERED: HYDROcodone/APAP 5/325MG 1 TAB TABLET PO ONE (21:00)
[2018-04-30 21:54] VITALS: BP 146/75
[2018-04-30] MEDS ORDERED: ACETAMINOPHEN 500 MG TABLET PO PRN (22:15)
[2018-04-30] MEDS ORDERED: fentaNYL PF 250 MCG/5 ML VIAL IV PRN (22:15)
[2018-04-30 22:55] VITALS: BP 128/63
[2018-05-01] MEDS: ZOLPIDEM 5 MG TABLET. PO PRN (00:44)
[2018-05-01] MEDS: HYDROcodone/APAP 5/325MG 1 TAB TABLET PO PRN ×2 (00:44→16:03)
[2018-05-01] MEDS: PREGABALIN 75 MG CAPSULE PO SCH ×3 (00:45→20:20)
[2018-05-01] MEDS ORDERED: OXYC10TA46 PO (01:14)
[2018-05-01] MEDS: PIPERACILLIN/TAZOBACTAM 3.375 GM in IV NORMAL SALINE 50ML 50 ML IV SCH ×4 (01:46→20:21)
[2018-05-01] MEDS: levoFLOXacin 500 MG TABLET PO SCH (05:34)
[2018-05-01 05:55] VITALS: BP 118/69
[2018-05-01 06:26] LABS: BASO # 0.1 x10^3/uL (0.0-0.2); BASO % 1 % (0-3); EOS # 0.1 x10^3/uL (0.0-0.7); EOS % 1 % (0-3); HEMATOCRIT 32.2 % (39.0-53.0); LYMPH # 1.2 x10^3/uL (1.0-4.8); LYMPH % 11 % (24-48); MEAN CORPUSCULAR HEMOGLOBIN 33 pg (25-35); MEAN CORPUSCULAR HGB CONC 34 g/dL (31-37); MEAN CORPUSCULAR VOLUME 95 fL (79-100); MONO % 9 % (0-9); NEUT # 8.6 x10^3uL (1.8-7.7); NEUT % 78 % (31-73); PLATELET COUNT 218 x10^3/uL (140-400); RED BLOOD COUNT 3.38 x10^6/uL (4.30-5.70); RED CELL DISTRIBUTION WIDTH 14.3 % (11.5-14.5); WHITE BLOOD COUNT 10.9 x10^3/uL (4.0-11.0)
[2018-05-01] MEDS ORDERED: IOHEXOL 350 MG/ML 100 ML VIAL. IV ONE (08:45)
[2018-05-01] MEDS: LIDOCAINE (700MG/PATCH) PATCH. TD SCH (09:37)
[2018-05-01] MEDS: hydroCHLOROthiazide 12.5 MG CAPSULE PO SCH (09:37)
[2018-05-01] MEDS: MULTIVITAMIN with MINERAL TABLET. PO SCH (09:38)
[2018-05-01] MEDS: FUROSEMIDE 40 MG TABLET PO SCH (09:38)
[2018-05-01] MEDS: LACTOBACILLUS RHAMNOSUS GG 1 CAPSULE. PO SCH ×2 (09:38→20:19)
[2018-05-01] MEDS: oxyCODONE ER 10 MG TAB.ER.12H PO SCH ×2 (09:38→20:21)
[2018-05-01] MEDS: METOPROLOL SUCC 24HR ER 50 MG TAB.ER.24H. PO SCH (09:38)
[2018-05-01] MEDS: TAMSULOSIN 0.4 MG CAP.ER.24H. PO SCH (09:38)
[2018-05-01] MEDS: DOCUSATE SODIUM 100 MG CAPSULE PO SCH (09:38)
[2018-05-01] MEDS: GLUCOSAMINE/CHOND 500/400MG CAPSULE PO SCH (09:39)
[2018-05-01] MEDS: POTASSIUM CHLORIDE 20 MEQ TABLET.ER. PO SCH ×2 (09:39→16:04)
--- NOTE | 2018-05-01 10:34 | RAD ---
Examination: CT angiography chest HISTORY: History of deep venous thrombosis in the left arm COMPARISON: None available TECHNIQUE: Axial CT and radiographic images of the chest were performed with IV contrast. Coronal and sagittal 3-D MIP reformats are performed Exposure: One or more of the following individualized dose reduction techniques were utilized for this examination: 1. Automated exposure control 2. Adjustment of the mA and/or kV according to patient size 3. Use of iterative reconstruction technique FINDINGS: Central airways are patent. Mild cardiomegaly. Left-sided cardiac pacer is identified. The caliber of the aorta grossly appears unremarkable. No evidence of filling defect identified in the main pulmonary arterial trunk and right and left main pulmonary arteries. The evaluation of the distal lobar, segmental branches somewhat limited on this examination. There are multiple patchy nodular airspace opacities identified in the left lower lobe of the lung. No evidence of pleural effusion or pneumothorax. There is mild diffuse decreased attenuation noted in the liver likely steatosis. The visualized spleen, adrenals grossly appears unremarkable. The gallbladder is mildly distended. Moderate degenerative changes thoracic spine. IMPRESSION: 1. No evidence of central pulmonary embolism. The evaluation of the distal segmental branches of the pulmonary arteries is limited on this examination. 2. Patchy nodular airspace opacities identified in the left lower lobe likely pneumonia or atelectasis. Close interval follow-up examination is recommended. 3. Hepatic steatosis. Electronically signed by: Maximino Nguyen MD (05/01/2018 10:29 AM) [facility]
[2018-05-01 12:05] VITALS: BP 128/68
[2018-05-01 15:32] VITALS: BP 112/66
[2018-05-01] MEDS: WARFARIN 6 MG TABLET. PO SCH (16:04)
--- NOTE | 2018-05-01 19:18 | PN ---
DATE: 05/01/2018 SUBJECTIVE: The patient is a 63-year-old gentleman, admitted yesterday because of cellulitis in his arm, failed outpatient antibiotic and therapy. The patient said the arm was getting worse. He was seen in the Emergency Room and admitted directly from there. Blood pressure 128/63, respiratory rate 20, pulse 83, afebrile. He is definitely better this morning. He is on a combination of Levaquin and Zosyn, and making excellent progress during the rest of his hospitalization here. The patient otherwise is doing somewhat better. He also was complicated by the fact that he has a DVT in his left arm despite the fact he is on therapeutic doses of warfarin and that is be monitored carefully. A CTA has been performed, report pending on that. OBJECTIVE: LUNGS: Clear. CARDIOVASCULAR: Stable. EXTREMITIES: Left arm is slightly less swollen, markedly improved. He says he is feeling somewhat better. We will continue to monitor. IMPRESSION: Cellulitis to the left arm secondary to fall off a ladder, essential hypertension, chronic atrial fibrillation, DVT of the left arm, continue to monitor him accordingly. Continue with IV antibiotic therapy ____ all the reports are returned. ALINA GUADALUPE MD DR: ROSHNI/daniela JOB#: [id number] / [id number]
[2018-05-01 19:35] VITALS: BP 146/86
[2018-05-02] MEDS: PIPERACILLIN/TAZOBACTAM 3.375 GM in IV NORMAL SALINE 50ML 50 ML IV SCH ×4 (02:19→20:23)
[2018-05-02] MEDS: levoFLOXacin 500 MG TABLET PO SCH (05:03)
[2018-05-02 05:18] VITALS: BP 104/61
[2018-05-02 07:47] LABS: BASO # 0.1 x10^3/uL (0.0-0.2); BASO % 1 % (0-3); EOS # 0.3 x10^3/uL (0.0-0.7); EOS % 4 % (0-3); HEMATOCRIT 33.7 % (39.0-53.0); HEMOGLOBIN 11.4 g/dL (13.0-17.5); LYMPH % 12 % (24-48); MEAN CORPUSCULAR HEMOGLOBIN 32 pg (25-35); MEAN CORPUSCULAR HGB CONC 34 g/dL (31-37); MEAN CORPUSCULAR VOLUME 95 fL (79-100); MONO # 0.8 x10^3/uL (0.0-1.1); MONO % 10 % (0-9); NEUT # 6.2 x10^3uL (1.8-7.7); NEUT % 74 % (31-73); PLATELET COUNT 152 x10^3/uL (140-400); RED BLOOD COUNT 3.53 x10^6/uL (4.30-5.70); RED CELL DISTRIBUTION WIDTH 14.4 % (11.5-14.5); WHITE BLOOD COUNT 8.4 x10^3/uL (4.0-11.0)
[2018-05-02 07:51] LABS: CALCIUM 8.1 mg/dL (8.5-10.1); CREATININE 0.9 mg/dL (0.7-1.3); GFR 84.7; POTASSIUM 3.7 mmol/L (3.5-5.1)
[2018-05-02] MEDS: oxyCODONE ER 10 MG TAB.ER.12H PO SCH ×2 (09:18→20:24)
[2018-05-02] MEDS: LIDOCAINE (700MG/PATCH) PATCH. TD SCH (09:18)
[2018-05-02] MEDS: PREGABALIN 75 MG CAPSULE PO SCH ×2 (09:18→20:23)
[2018-05-02] MEDS: LACTOBACILLUS RHAMNOSUS GG 1 CAPSULE. PO SCH ×2 (09:19→20:23)
[2018-05-02] MEDS: FUROSEMIDE 40 MG TABLET PO SCH (09:19)
[2018-05-02] MEDS: METOPROLOL SUCC 24HR ER 50 MG TAB.ER.24H. PO SCH (09:19)
[2018-05-02] MEDS: TAMSULOSIN 0.4 MG CAP.ER.24H. PO SCH (09:19)
[2018-05-02] MEDS: GLUCOSAMINE/CHOND 500/400MG CAPSULE PO SCH (09:19)
[2018-05-02] MEDS: POTASSIUM CHLORIDE 20 MEQ TABLET.ER. PO SCH ×2 (09:19→16:32)
[2018-05-02] MEDS: hydroCHLOROthiazide 12.5 MG CAPSULE PO SCH (09:19)
[2018-05-02] MEDS: DOCUSATE SODIUM 100 MG CAPSULE PO SCH (09:19)
[2018-05-02] MEDS: MULTIVITAMIN with MINERAL TABLET. PO SCH (09:19)
[2018-05-02 11:37] VITALS: BP 123/74
--- NOTE | 2018-05-02 12:29 | RAD ---
Left elbow, 2 views, 05/02/2017: HISTORY: Elbow pain after a fall No fracture or dislocation is identified. No destructive bony lesion is seen. There is no radiographic evidence of a significant elbow joint effusion. There is considerable subcutaneous edema, particularly along the posterior aspect of the elbow. IMPRESSION: No acute bony abnormality is detected. Electronically signed by: Arnel Fregoso MD (05/02/2018 12:25 PM) [facility]
--- NOTE | 2018-05-02 13:57 | PN ---
DATE: 05/02/2018 SUBJECTIVE: This 63-year-old male in with a cellulitis to his left forearm secondary to fall and a large clot in his left upper arm, still receiving IV Zosyn, refuses a PICC line. The patient otherwise continues to make good progress. PHYSICAL EXAMINATION: VITAL SIGNS: Blood pressure 104/60, respiratory rate 20, pulse 70, afebrile. LUNGS: Diminished, but clear. CARDIOVASCULAR: Irregularly irregular rhythm. ABDOMEN: Soft. EXTREMITIES: Left arm still markedly swollen, but less so than before. The patient otherwise will continue to be monitored carefully. CTA yesterday was unremarkable. He will continue to be monitored carefully and make further evaluation on him as indicated per those results. Pulses are noted distally. Fingertips are warm with good capillary refill. Normal function of that left arm. IMPRESSION: Cellulitis of the left forearm secondary to fall, deep vein thrombosis of the left upper arm secondary to fall. ALINA GUADALUPE MD DR: ROSHNI/daniela JOB#: [id number] / [id number]
[2018-05-02 15:19] VITALS: BP 107/63
[2018-05-02] MEDS: WARFARIN 6 MG TABLET. PO SCH (16:32)
[2018-05-02] MEDS: HYDROcodone/APAP 5/325MG 1 TAB TABLET PO PRN (16:36)
[2018-05-02 19:20] VITALS: BP 103/54
[2018-05-02] MEDS: ZOLPIDEM 5 MG TABLET. PO PRN (20:23)
[2018-05-03] MEDS: PIPERACILLIN/TAZOBACTAM 3.375 GM in IV NORMAL SALINE 50ML 50 ML IV SCH ×4 (01:43→19:27)
[2018-05-03 05:28] VITALS: BP 121/72
[2018-05-03] MEDS: levoFLOXacin 500 MG TABLET PO SCH (05:55)
[2018-05-03] MEDS: LIDOCAINE (700MG/PATCH) PATCH. TD SCH (08:21)
[2018-05-03] MEDS: hydroCHLOROthiazide 12.5 MG CAPSULE PO SCH (08:22)
[2018-05-03] MEDS: oxyCODONE ER 10 MG TAB.ER.12H PO SCH ×2 (08:22→21:00)
[2018-05-03] MEDS: POTASSIUM CHLORIDE 20 MEQ TABLET.ER. PO SCH ×2 (08:22→17:49)
[2018-05-03] MEDS: LACTOBACILLUS RHAMNOSUS GG 1 CAPSULE. PO SCH ×2 (08:22→21:00)
[2018-05-03] MEDS: FUROSEMIDE 40 MG TABLET PO SCH (08:22)
[2018-05-03] MEDS: PREGABALIN 75 MG CAPSULE PO SCH ×2 (08:22→21:01)
[2018-05-03] MEDS: TAMSULOSIN 0.4 MG CAP.ER.24H. PO SCH (08:22)
[2018-05-03] MEDS: MULTIVITAMIN with MINERAL TABLET. PO SCH (08:23)
[2018-05-03] MEDS: DOCUSATE SODIUM 100 MG CAPSULE PO SCH (08:23)
[2018-05-03] MEDS: METOPROLOL SUCC 24HR ER 50 MG TAB.ER.24H. PO SCH (08:23)
[2018-05-03] MEDS: GLUCOSAMINE/CHOND 500/400MG CAPSULE PO SCH (08:26)
[2018-05-03 10:56] VITALS: BP 121/69
[2018-05-03] MEDS ORDERED: guaiFENesin DM 200MG/20MG 10 ML SYRUP PO PRN (12:00)
[2018-05-03] MEDS: ENOXAPARIN 40 MG/0.4 ML SYRINGE. SQ SCH (12:51)
--- NOTE | 2018-05-03 13:16 | PN ---
DATE: 05/03/2018 SUBJECTIVE: This 63-year-old male in with cellulitis to his left forearm as well as pneumonia. He is resting comfortably, making fairly good progress. White count has continued to show some progress in coming down. The patient otherwise his INR has dropped for some reason, although he is on 6 mg of warfarin daily. We will continue on that, give a dose of Lovenox, and an extra milligram or two of the warfarin to get the protime back up. In the meantime, give him Lovenox 40 mg as a transition. His CTA did show pneumonic process as well, so continue on that, otherwise. OBJECTIVE: LUNGS: Diminished crackles in the left lower lobe. CARDIOVASCULAR: Irregularly irregular rhythm. ABDOMEN: Soft. Left arm less swollen, but still warm. Heart tender to touch. Swollen in one area. We will go ahead and continue to monitor him and accordingly make further evaluation on him as indicated and continue IV antibiotic therapy. IMPRESSION: Cellulitis of left arm, deep vein thrombosis of the left arm, pneumonia of unspecified etiology, community acquired, chronic atrial fibrillation, chronic coumadinization. PLAN: Continue to monitor the patient and accordingly make further evaluation on him. Continue IV antibiotic therapy. ALINA GUADALUPE MD DR: ROSHNI/daniela JOB#: [id number] / [id number]
[2018-05-03] MEDS: IPRATRPIUM/ALBUTEROL 0.5/2.5MG 3 ML NEBU. NEB SCH ×2 (14:21→20:53)
[2018-05-03 15:25] VITALS: BP 115/51
[2018-05-03] MEDS: WARFARIN 6 MG TABLET. PO SCH (17:49)
[2018-05-03 19:54] VITALS: BP 137/85
[2018-05-03] MEDS: ZOLPIDEM 5 MG TABLET. PO PRN (21:04)
[2018-05-03 23:24] VITALS: BP 105/58
[2018-05-04] MEDS: PIPERACILLIN/TAZOBACTAM 3.375 GM in IV NORMAL SALINE 50ML 50 ML IV SCH ×4 (02:58→20:11)
[2018-05-04] MEDS: levoFLOXacin 500 MG TABLET PO SCH (05:27)
[2018-05-04] MEDS: IPRATRPIUM/ALBUTEROL 0.5/2.5MG 3 ML NEBU. NEB SCH ×3 (05:32→20:53)
[2018-05-04 06:41] VITALS: BP 135/75
[2018-05-04] MEDS: MULTIVITAMIN with MINERAL TABLET. PO SCH (08:01)
[2018-05-04] MEDS: LIDOCAINE (700MG/PATCH) PATCH. TD SCH (08:01)
[2018-05-04] MEDS: TAMSULOSIN 0.4 MG CAP.ER.24H. PO SCH (08:01)
[2018-05-04] MEDS: ENOXAPARIN 40 MG/0.4 ML SYRINGE. SQ SCH (08:01)
[2018-05-04] MEDS: LACTOBACILLUS RHAMNOSUS GG 1 CAPSULE. PO SCH ×2 (08:01→20:12)
[2018-05-04] MEDS: FUROSEMIDE 40 MG TABLET PO SCH (08:02)
[2018-05-04] MEDS: GLUCOSAMINE/CHOND 500/400MG CAPSULE PO SCH (08:02)
[2018-05-04] MEDS: DOCUSATE SODIUM 100 MG CAPSULE PO SCH (08:02)
[2018-05-04] MEDS: hydroCHLOROthiazide 12.5 MG CAPSULE PO SCH (08:02)
[2018-05-04] MEDS: PREGABALIN 75 MG CAPSULE PO SCH ×2 (08:02→20:12)
[2018-05-04] MEDS: oxyCODONE ER 10 MG TAB.ER.12H PO SCH ×2 (08:02→20:13)
[2018-05-04] MEDS: METOPROLOL SUCC 24HR ER 50 MG TAB.ER.24H. PO SCH (08:02)
[2018-05-04] MEDS: POTASSIUM CHLORIDE 20 MEQ TABLET.ER. PO SCH ×2 (08:03→16:45)
[2018-05-04 11:25] VITALS: BP 134/89
[2018-05-04] MEDS: FAMOTIDINE 20 MG TABLET PO SCH ×2 (13:50→20:12)
[2018-05-04 15:06] VITALS: BP 119/78
[2018-05-04] MEDS: WARFARIN 6 MG TABLET. PO SCH (16:45)
[2018-05-04 19:51] VITALS: BP 139/88
[2018-05-04] MEDS: ZOLPIDEM 5 MG TABLET. PO PRN (20:12)
--- NOTE | 2018-05-04 21:53 | PN ---
DATE: 05/04/2018 SUBJECTIVE: A 63-year-old male in with cellulitis of the left arm as well as an extensive DVT. The patient has a large area below the elbow, which seems to be puffed out more so than it has been, although the overall arm itself has decreased in size. Pulses noted distally. Good capillary refill. OBJECTIVE: VITAL SIGNS: Blood pressure 120/78, respiratory rate 20, pulse 70, afebrile. GENERAL: The patient is alert and oriented. LUNGS: Diminished, but clear except for the right lung base where there was some crackles or decreased breath sounds. EXTREMITIES: The arm itself is slightly swollen as indicated, but going down. There is ecchymosis to the bicep of the left upper arm. The patient continues to make good progress overall and his protime was still a little bit on the low side at 1.9. He is being supplemented with Lovenox so we can get this back up. He continues on IV antibiotic therapy because of the infection in the upper arm itself and lower arm, which shows improvement, but still requires IV monitoring as well as the fact that his CTA did show the possibility of a pneumonic process. So, we will continue on IV antibiotic therapy, get the ultrasound report on that gentleman's arm looking for possible abscess and make further evaluation as indicated. ALINA GUADALUPE MD DR: ROSHNI/daniela JOB#: [id number] / [id number]
[2018-05-04 22:51] VITALS: BP 105/67
[2018-05-05] MEDS: PIPERACILLIN/TAZOBACTAM 3.375 GM in IV NORMAL SALINE 50ML 50 ML IV SCH ×2 (02:16→09:20)
[2018-05-05] MEDS: IPRATRPIUM/ALBUTEROL 0.5/2.5MG 3 ML NEBU. NEB SCH (05:27)
[2018-05-05 06:00] VITALS: BP 131/82
[2018-05-05] MEDS: levoFLOXacin 500 MG TABLET PO SCH (06:02)
[2018-05-05] MEDS: ENOXAPARIN 40 MG/0.4 ML SYRINGE. SQ SCH (09:24)
[2018-05-05] MEDS: LIDOCAINE (700MG/PATCH) PATCH. TD SCH (09:25)
[2018-05-05] MEDS: hydroCHLOROthiazide 12.5 MG CAPSULE PO SCH (09:27)
[2018-05-05] MEDS: MULTIVITAMIN with MINERAL TABLET. PO SCH (09:27)
[2018-05-05] MEDS: LACTOBACILLUS RHAMNOSUS GG 1 CAPSULE. PO SCH (09:27)
[2018-05-05] MEDS: oxyCODONE ER 10 MG TAB.ER.12H PO SCH (09:27)
[2018-05-05] MEDS: GLUCOSAMINE/CHOND 500/400MG CAPSULE PO SCH (09:27)
[2018-05-05] MEDS: FUROSEMIDE 40 MG TABLET PO SCH (09:27)
[2018-05-05] MEDS: FAMOTIDINE 20 MG TABLET PO SCH (09:27)
[2018-05-05] MEDS: DOCUSATE SODIUM 100 MG CAPSULE PO SCH (09:27)
[2018-05-05] MEDS: PREGABALIN 75 MG CAPSULE PO SCH (09:28)
[2018-05-05] MEDS: TAMSULOSIN 0.4 MG CAP.ER.24H. PO SCH (09:28)
[2018-05-05] MEDS: POTASSIUM CHLORIDE 20 MEQ TABLET.ER. PO SCH (09:28)
[2018-05-05] MEDS: METOPROLOL SUCC 24HR ER 50 MG TAB.ER.24H. PO SCH (09:28)
[2018-05-05] MEDS ORDERED: PREG75CA PO (09:40)
[2018-05-05] MEDS ORDERED: WARF6TAB PO (09:40)
[2018-05-05] MEDS ORDERED: OXYC10TA46 PO (09:40)
[2018-05-05] MEDS ORDERED: FAMO20TA5 PO (09:56)
[2018-05-05] MEDS ORDERED: MULT1TAB90 PO (09:56)
[2018-05-05] MEDS ORDERED: GLUC1CAP3 PO (09:56)
[2018-05-05 11:01] VITALS: BP 140/85
--- NOTE | 2018-05-05 16:41 | RAD ---
Left elbow ultrasound, 05/05/2017: HISTORY: Elbow swelling A targeted ultrasound exam of the area of clinical concern at the left elbow was performed. No discrete fluid collection or mass was identified. MR scanning may be considered for further evaluation, if clinically indicated. Electronically signed by: Arnel Fregoso MD (05/05/2018 4:36 PM) [facility]
--- NOTE | 2018-05-05 16:48 | DS ---
DATE OF DISCHARGE: 05/05/2018 HOSPITAL COURSE: A 63-year-old male patient had fallen off a ladder and had a significant injury to his left elbow and left upper arm was swollen. He was seen through the Emergency Room. He had a significant deep venous thrombosis of the left upper arm extending from about the elbow up into the axillary area. As a result of this, the patient also was noted to have an infection noted in the left arm and patient otherwise was placed on IV antibiotic therapy. His protimes were a little bit on the low side, so he was continued on the warfarin, but at the same token, he was given Lovenox to bridge the difference since he had a significant DVT. The patient's image of the CTA did not demonstrate any evidence of a PE, although did show likely pneumonia, a possibility in his left lower lobe as well as hepatic steatosis. The patient made good progress on the antibiotics as well as with the Lovenox and continued to make good progress overall there. As a result, the patient was discharged home and he will continue I believe on IM Rocephin and make further evaluation on the protimes as an outpatient. He will be sent home. He will be on home medications as noted, see MRAD. Decreased activity, especially with that left arm, told him not to go back to work and we will continue to monitor him accordingly. IMPRESSION: Cellulitis to the left arm secondary to a fall off a ladder, deep venous thrombosis of the left upper arm, hypocoagulable state, contusion to the left elbow, history of chronic atrial fibrillation, [employer] pacemaker, right knee arthritis, ankle replacement in 2011. He has had a history of methicillin-resistant Staphylococcus aureus. DISCHARGE INSTRUCTIONS: The patient continued to be monitored carefully. Make further evaluation on him as indicated as an outpatient. See MRAD. Decreased activity, no work and he is to return to clinic. He will get another at least 5 days' worth of IV or IM Rocephin as an outpatient. ALINA GUADALUPE MD DR: ROSHNI/daniela JOB#: [id number] / [id number]
== END 2018-05-05 12:16 | disposition home or self-care (01) | DRG 299 ==
LOC: ER 17:35 → 1 SOUTH 20:35
PROVIDERS: ADMIT Family Medicine; ATTEND Family Medicine
DX: I82.622 Acute embolism and thrombosis of deep veins of left upper extremity (principal); J18.1 Lobar pneumonia, unspecified organism; L03.114 Cellulitis of left upper limb; S40.022A Contusion of left upper arm, initial encounter; I11.0 Hypertensive heart disease with heart failure; I25.10 Atherosclerotic heart disease of native coronary artery without angina pectoris; I48.2 Chronic atrial fibrillation; I50.9 Heart failure, unspecified; M17.11 Unilateral primary osteoarthritis, right knee; S50.02XA Contusion of left elbow, initial encounter; W01.0XXA Fall on same level from slipping, tripping and stumbling without subsequent striking against object, initial encounter; Y93.89 Activity, other specified; Y92.89 Other specified places as the place of occurrence of the external cause; Y99.8 Other external cause status; Z79.01 Long term (current) use of anticoagulants; Z86.14 Personal history of Methicillin resistant Staphylococcus aureus infection; Z86.73 Personal history of transient ischemic attack (TIA), and cerebral infarction without residual deficits; Z88.1 Allergy status to other antibiotic agents; Z88.8 Allergy status to other drugs, medicaments and biological substances; Z53.29 Procedure and treatment not carried out because of patient's decision for other reasons
CPT/HCPCS: 36415; 70450; 71275; 72125; 73080; 76882; 80048; 80053; 81001; 85025; 85610; 85730; 87040; 93971; 94640; 96365; 96367; J0696; J1650; J2543; J3370; J7040; J7620; Q9967; 99285-25

== ENCOUNTER 2020-01-21 15:47 | Emergency (ER) | payer MEDICARE, OTHER ==
[~2020-01-21] VITALS: Ht 182.9 cm; Wt 116.2 kg
[~2020-01-21 15:47] MED LIST changes: +ACET650T6 PO; -ACET650T89 PO; +FAMO20TA5 PO; +GLUC1CAP66 PO; +LIDO700A21 TD; -LIDO700A39 TD; +MULT-445 PO; -MULT1TAB52 PO; +MULT1TAB90 PO; +OXYC10TA46 PO
[2020-01-21] MEDS ORDERED: VANCOMYCIN 1 GM in IV NORMAL SALINE 250ML 250 ML IV ONE (16:15)
--- NOTE | 2020-01-21 16:20 | RAD ---
Exam: Right knee 3 views INDICATION: Right knee wound TECHNIQUE: Frontal, lateral and oblique views of the right knee Comparisons: None FINDINGS: There is soft tissue swelling overlying the right knee anterior to the patella with air in the soft tissues. Bone mineralization is normal. No acute or healed fractures. There is tricompartmental osteoarthritic change greatest in the medial compartment with marginal osteophytosis and joint space narrowing. IMPRESSION: Soft tissue swelling anterior to the right patella with a small amount of soft tissue gas, may relate to laceration. Correlate with physical exam. Electronically signed by: Maury Rios MD (01/21/2020 4:18 PM) [facility]
[2020-01-21] MEDS ORDERED: VANCOMYCIN 2 GM in IV NORMAL SALINE 500ML 500 ML IV ONE (16:30)
[2020-01-21 16:47] LABS: BASO % 1 % (0-3); EOS % 0 % (0-3); HEMATOCRIT 38.4 % (39.0-53.0); HEMOGLOBIN 12.7 g/dL (13.0-17.5); LYMPH # 1.5 x10^3/uL (1.0-4.8); LYMPH % 19 % (24-48); MEAN CORPUSCULAR HEMOGLOBIN 32 pg (25-35); MEAN CORPUSCULAR HGB CONC 33 g/dL (31-37); MEAN CORPUSCULAR VOLUME 98 fL (79-100); MONO # 0.6 x10^3/uL (0.0-1.1); MONO % 8 % (0-9); NEUT # 5.6 x10^3uL (1.8-7.7); NEUT % 72 % (31-73); PLATELET COUNT 206 x10^3/uL (140-400); RED BLOOD COUNT 3.94 x10^6/uL (4.30-5.70); RED CELL DISTRIBUTION WIDTH 14.9 % (11.5-14.5); WHITE BLOOD COUNT 7.8 x10^3/uL (4.0-11.0)
[2020-01-21 16:54] LABS: CALCIUM 8.8 mg/dL (8.5-10.1); CREATININE 1.1 mg/dL (0.7-1.3); POTASSIUM 3.8 mmol/L (3.5-5.1)
[2020-01-21 17:00] LABS: ALBUMIN 3.6 g/dL (3.4-5.0); TOTAL BILIRUBIN 0.5 mg/dL (0.2-1.0); TOTAL PROTEIN 7.2 g/dL (6.4-8.2)
[2020-01-21] MEDS ORDERED: CEPH-264 PO (17:40)
[2020-01-21] MEDS ORDERED: SULF1TAB24 PO (17:40)
--- NOTE | 2020-01-21 17:40 | PHYS DOC ---
Past History Past Medical History: A-Fib, CAD, CHF, Stroke Past Surgical History: Pacemaker, Other Smoking: Non-smoker Alcohol Use: Rarely Drug Use: None General Adult EDM: Chief Complaint: RIGHT KNEE WOUND HPI: HPI: Patient is a 64-year-old male who presented to ER today for evaluation of a wound on his right knee. Patient had this wound since November of this year. He was seen by Dr. Wallace Bar, orthopedic surgeon, has been on antibiotic. Patient ran out of his antibiotic, he called his doctor 2 days ago who told him to come to ER for evaluation. Patient denies any fever, no chest pain, no abdominal pain, no nausea vomiting. Patient denies any trouble breathing. Review of Systems: Review of Systems: Constitutional: Denies fever or chills Eyes: Denies change in visual acuity HENT: Denies nasal congestion or sore throat Respiratory: Denies cough or shortness of breath Cardiovascular: Denies chest pain or edema GI: Denies abdominal pain, nausea, vomiting, bloody stools or diarrhea : Denies dysuria Musculoskeletal: Denies back pain or joint pain Integument: positive for a wound on right knee. Neurologic: Denies headache, focal weakness or sensory changes Endocrine: Denies polyuria or polydipsia Lymphatic: Denies swollen glands Psychiatric: Denies depression or anxiety Heart Score: Risk Factors: Risk Factors: DM, Current or recent (<one month) smoker, HTN, HLP, family history of CAD, obesity. Risk Scores: Score 0 - 3: 2.5% MACE over next 6 weeks - Discharge Home Score 4 - 6: 20.3% MACE over next 6 weeks - Admit for Clinical Observation Score 7 - 10: 72.7% MACE over next 6 weeks - Early Invasive Strategies Current Medications: Current Meds: Current Medications Medications (Trade) Dose Ordered Sig/Aisha Start Time Stop Time Status Last Admin Dose Admin Vancomycin HCl 1 gm/Sodium Chloride 250 ml @ 250 mls/hr 1X ONCE 01/21/20 16:15 01/21/20 17:14 UNV Vancomycin HCl 2 gm/Sodium Chloride 500 ml @ 250 mls/hr 1X ONCE 01/21/20 16:30 01/21/20 18:29 01/21/20 16:51 250 MLS/HR Allergies: Allergies: Allergies Coded Allergies Type Severity Reaction Last Updated Verified naproxen Allergy Intermediate Rash 05/03/18 Yes I S O L A T I O N *CONTACT* Allergy Unknown 09/10/16 Yes Physical Exam: PE: Constitutional: Well developed, well nourished, no acute distress, non-toxic appearance. [] HENT: Normocephalic, atraumatic, bilateral external ears normal, oropharynx moist, no oral exudates, nose normal. [] Eyes: PERRLA, EOMI, conjunctiva normal, no discharge. [] Neck: Normal range of motion, no tenderness, supple, no stridor. [] Cardiovascular:Heart rate regular rhythm, no murmur [] Lungs & Thorax: Bilateral breath sounds clear to auscultation [] Abdomen: Bowel sounds normal, soft, no tenderness, no masses, no pulsatile masses. [] Skin: Warm, dry, no erythema, no rash. [] Back: No tenderness, no CVA tenderness. [] Extremities: THERE IS A VERTICAL INCISED WOUND ON THE RIGHT KNEE CAP AREA WITH FOUL CLEAR DRAINAGE. The right knee joint is stable, NO CALF SWELLING. Neurologic: Alert and oriented X 3, normal motor function, normal sensory function, no focal deficits noted. [] Psychologic: Affect normal, judgement normal, mood normal. [] Current Patient Data: Labs: Laboratory Tests Test 01/21/20 16:18 White Blood Count 7.8 x10^3/uL (4.0-11.0) Red Blood Count 3.94 x10^6/uL (4.30-5.70) L Hemoglobin 12.7 g/dL (13.0-17.5) L Hematocrit 38.4 % (39.0-53.0) L Mean Corpuscular Volume 98 fL (79-100) Mean Corpuscular Hemoglobin 32 pg (25-35) Mean Corpuscular Hemoglobin Concent 33 g/dL (31-37) Red Cell Distribution Width 14.9 % (11.5-14.5) H Platelet Count 206 x10^3/uL (140-400) Neutrophils (%) (Auto) 72 % (31-73) Lymphocytes (%) (Auto) 19 % (24-48) L Monocytes (%) (Auto) 8 % (0-9) Eosinophils (%) (Auto) 0 % (0-3) Basophils (%) (Auto) 1 % (0-3) Neutrophils # (Auto) 5.6 x10^3uL (1.8-7.7) Lymphocytes # (Auto) 1.5 x10^3/uL (1.0-4.8) Monocytes # (Auto) 0.6 x10^3/uL (0.0-1.1) Eosinophils # (Auto) 0.0 x10^3/uL (0.0-0.7) Basophils # (Auto) 0.0 x10^3/uL (0.0-0.2) Sodium Level 143 mmol/L (136-145) Potassium Level 3.8 mmol/L (3.5-5.1) Chloride Level 105 mmol/L (98-107) Carbon Dioxide Level 30 mmol/L (21-32) Anion Gap 8 (6-14) Blood Urea Nitrogen 20 mg/dL (8-26) Creatinine 1.1 mg/dL (0.7-1.3) Estimated GFR (Cockcroft-Gault) 67.0 BUN/Creatinine Ratio 18 (6-20) Glucose Level 100 mg/dL (70-99) H Calcium Level 8.8 mg/dL (8.5-10.1) Total Bilirubin 0.5 mg/dL (0.2-1.0) Aspartate Amino Transferase (AST) 21 U/L (15-37) Alanine Aminotransferase (ALT) 32 U/L (16-63) Alkaline Phosphatase 76 U/L (46-116) Total Protein 7.2 g/dL (6.4-8.2) Albumin 3.6 g/dL (3.4-5.0) Albumin/Globulin Ratio 1.0 (1.0-1.7) Vital Signs: Vital Signs Date Time Temp Pulse Resp B/P (MAP) Pulse Ox O2 Delivery O2 Flow Rate FiO2 01/21/20 15:57 98.0 66 16 147/83 (104) 98 Room Air EKG: EKG: [] Radiology/Procedures: Radiology/Procedures: [][address] [address] IMAGING REPORT Signed PATIENT: LILIANA SOLIZ ACCOUNT: [id number] : 1955 LOCATION: ER AGE: 64 SEX: M EXAM STATUS: PRE ER ORD. PHYSICIAN: ALINA MARSH DO REASON: RIGHT KNEE WOUND PROCEDURE: KNEE RIGHT 3V Exam: Right knee 3 views INDICATION: Right knee wound TECHNIQUE: Frontal, lateral and oblique views of the right knee Comparisons: None FINDINGS: There is soft tissue swelling overlying the right knee anterior to the patella with air in the soft tissues. Bone mineralization is normal. No acute or healed fractures. There is tricompartmental osteoarthritic change greatest in the medial compartment with marginal osteophytosis and joint space narrowing. IMPRESSION: Soft tissue swelling anterior to the right patella with a small amount of soft tissue gas, may relate to laceration. Correlate with physical exam. Electronically signed by: Maury Soto MD (01/21/2020 4:18 PM) [facility] DICTATED AND SIGNED BY: MAURY SOTO MD DATE: 01/21/20 1618 CC: ALINA GUADALUPE MD; ALINA MARSH DO ~ Course & Med Decision Making: Course & Med Decision Making Pertinent Labs and Imaging studies reviewed. (See chart for details) Patient is a 64-year-old male with a nonhealing wound on his right kneecap. The wound appears to be infected, patient has been followed by his orthopedic surgeon Dr. Wallace Bar. Patient was on antibiotics but out of his antibiotics a week ago. Patient did not want to be admitted to hospital he wants prescription antibiotics that he can take at home then he will follow up with his doctor. Patient was in no acute distress. He was discharged home with Bactrim and Keflex. Patient agreed to call his doctor for follow-up on Saturday. Jensen Disclaimer: Jensen Disclaimer: This electronic medical record was generated, in whole or in part, using a voice recognition dictation system. Departure Departure: Impression: Primary Impression: Cellulitis of right lower extremity Additional Impression: Cutaneous abscess of right knee Disposition: HOME/RESIDENCE PRIOR TO ADM Condition: STABLE Referrals: ALINA GUADALUPE MD (PCP) WALLACE BAR MD PLEASE CALL THIS ORTHOPEDIC SURGEON FOR FOLLOW UP NEXT WEEK Patient Instructions: Abscess, Cellulitis Additional Instructions: Thank you for visiting our Emergency Department. We appreciate you trusting us w ith your care. If any additional problems come up don't hesitate to return to visit us. Please follow up with your primary care provider so they can plan additional care if needed and know about the problem that you had. If symptoms worsen come back to the Emergency Department. Any concerning symptoms that start such as chest pain, shortness of air, weakness or numbness on one side of the body, running high fevers or any other concerning symptoms return to the ER. Scripts Cephalexin (KEFLEX) 500 Mg Capsule 1 CAP PO QID for ABSCESS for 10 Days, #40 CAP 0 Refills Prov: ALINA MARSH DO 01/21/20 Sulfamethoxazole/Trimethoprim (BACTRIM DS TABLET) 1 Each Tablet 1 TAB PO BID for ABSCESS for 10 Days, #20 TAB 0 Refills Prov: ALINA MARSH DO 01/21/20 ALINA MARSH DO Jan 21, 2020 17:40
[2020-01-21 18:36] VITALS: BP 147/83
== END 2020-01-21 19:08 | disposition home or self-care (01) ==
LOC: ER 15:47
DX: S80.911A Unspecified superficial injury of right knee, initial encounter (principal); L03.115 Cellulitis of right lower limb; L02.415 Cutaneous abscess of right lower limb; I48.91 Unspecified atrial fibrillation; I50.9 Heart failure, unspecified; I25.10 Atherosclerotic heart disease of native coronary artery without angina pectoris; Z86.73 Personal history of transient ischemic attack (TIA), and cerebral infarction without residual deficits; Z95.0 Presence of cardiac pacemaker; Z88.8 Allergy status to other drugs, medicaments and biological substances; X58.XXXA Exposure to other specified factors, initial encounter; Y93.89 Activity, other specified; Y92.89 Other specified places as the place of occurrence of the external cause; Y99.8 Other external cause status
CPT/HCPCS: 36415; 73562; 80053; 85025; 87070; 87077; 96365; 96366; 99284; J3370; J7040

== ENCOUNTER 2020-09-17 11:30 | Inpatient (IN) | payer MEDICARE, OTHER ==
[~2020-09-17] VITALS: Ht 185.4 cm; Wt 99.1 kg
[~2020-09-17 11:30] MED LIST changes: +CEPH-264 PO; +GLUC1CAP PO; -GLUC1CAP66 PO; -MULT1TAB90 PO; +MULT1TAB92 PO; +SULF1TAB24 PO
[2020-09-17 11:52] VITALS: BP 102/68
[2020-09-17] MEDS ORDERED: TAMS0.4C97 PO (12:32)
[2020-09-17] MEDS ORDERED: oxyCODONE ER 10 MG TAB.ER.12H PO PRN (12:45)
[2020-09-17] MEDS ORDERED: ACETAMINOPHEN 500 MG TABLET PO PRN (12:45)
[2020-09-17] MEDS: IV NORMAL SALINE 1,000ML 1,000 ML IV SCH ×2 (14:00→21:03)
[2020-09-17 14:03] LABS: ALBUMIN 3.3 g/dL (3.4-5.0); C REACTIVE PROTEIN 0.8 mg/L (0-3.3); CALCIUM 8.6 mg/dL (8.5-10.1); CREATININE 0.9 mg/dL (0.7-1.3); GFR 84.2; MAGNESIUM 1.8 mg/dL (1.8-2.4); POTASSIUM 3.6 mmol/L (3.5-5.1); TOTAL BILIRUBIN 0.7 mg/dL (0.2-1.0); TOTAL PROTEIN 6.7 g/dL (6.4-8.2)
--- NOTE | 2020-09-17 14:09 | NUR ---
ADMISSION PT admitted by Dr. Lomeli from clinic for acute encephalopathy and AMS. Pt ambulated to room with . Admission complete, IV started and meds given (SEE EMAR). Pt resting comfortably with call light in reach and all questions addressed. Will continue to monitor. CC, RN
[2020-09-17] MEDS ORDERED: IOHEXOL 350 MG/ML 100 ML VIAL. IV ONE (14:15)
[2020-09-17 14:43] VITALS: BP 102/63
[2020-09-17 14:52] LABS: BASO % 1 % (0-3); EOS % 0 % (0-3); HEMATOCRIT 39.9 % (39.0-53.0); HEMOGLOBIN 13.2 g/dL (13.0-17.5); LYMPH # 1.3 x10^3/uL (1.0-4.8); LYMPH % 18 % (24-48); MEAN CORPUSCULAR HEMOGLOBIN 33 pg (25-35); MEAN CORPUSCULAR HGB CONC 33 g/dL (31-37); MEAN CORPUSCULAR VOLUME 100 fL (79-100); MONO # 0.5 x10^3/uL (0.0-1.1); MONO % 7 % (0-9); NEUT # 5.4 x10^3uL (1.8-7.7); NEUT % 74 % (31-73); PLATELET COUNT 76 x10^3/uL (140-400); RED BLOOD COUNT 3.99 x10^6/uL (4.30-5.70); RED CELL DISTRIBUTION WIDTH 15.2 % (11.5-14.5); WHITE BLOOD COUNT 7.2 x10^3/uL (4.0-11.0)
--- NOTE | 2020-09-17 17:06 | RAD ---
CT scan of the head without contrast 09/17/2020 Clinical History: Altered mental status. Technique: Unenhanced, contiguous, 5 mm axial sections were obtained through the head. One or more of the following individualized dose reduction techniques were utilized for this study: 1. Automated exposure control. 2. Adjustment of the mA and/or kV according to patient size. 3. Use of iterative reconstruction technique. Findings: There is generalized parenchymal atrophy. Areas of decreased attenuation are seen within t he periventricular and subcortical white matter of both cerebral hemispheres consistent with areas of small vessel ischemic disease. A small area encephalomalacia is seen involving the right frontal lob e. No acute parenchymal abnormality is seen. No extra-axial fluid collection is noted. No skull fract ure is seen. Impression: No acute intracranial abnormality is seen. Electronically signed by: Leonid Call MD (09/17/2020 5:04 PM) [id number]
--- NOTE | 2020-09-17 17:40 | EKG ---
[address] [address] Test Date: 2020-09-17 Test Time: 17:30:31 Pat Name: LILIANA SOLIZ Department: Room: 105 A Gender: M Accounts Receivable Accountant: : 1955 Requested By: ALINA GUADALUPE Order Number: [id number] Reading MD: Carl Evans Measurements Intervals [place] Rate: 70 P: [place]: QRS: 86 QRSD: 186 T: 28 QT: 434 QTc: 472 Interpretive Statements VENTRICULAR PACED RHYTHM Electronically Signed On 09-20-2020 15:29:14 CDT by Carl Evans
[2020-09-17 18:24] LABS: PLATELET CLUMP PRESENT; PLT ESTIMATE DECREASED (ADEQUATE)
[2020-09-17 19:36] VITALS: BP 111/70
[2020-09-17] MEDS: PREGABALIN 75 MG CAPSULE PO SCH (20:59)
[2020-09-17] MEDS ORDERED: TEMAZEPAM 15 MG CAPSULE PO PRN (21:00)
[2020-09-17] MEDS ORDERED: APIXABAN 5 MG TABLET. PO SCH (21:00)
[2020-09-17 22:23] VITALS: BP 115/70
[2020-09-18] MEDS: IV NORMAL SALINE 1,000ML 1,000 ML IV SCH (05:06)
[2020-09-18 05:21] VITALS: BP 120/69
[2020-09-18 07:18] LABS: BASO # 0.1 x10^3/uL (0.0-0.2); BASO % 1 % (0-3); EOS # 0.1 x10^3/uL (0.0-0.7); EOS % 2 % (0-3); HEMOGLOBIN 12.2 g/dL (13.0-17.5); LYMPH # 1.4 x10^3/uL (1.0-4.8); LYMPH % 21 % (24-48); MEAN CORPUSCULAR HEMOGLOBIN 33 pg (25-35); MEAN CORPUSCULAR HGB CONC 33 g/dL (31-37); MEAN CORPUSCULAR VOLUME 100 fL (79-100); MONO # 0.7 x10^3/uL (0.0-1.1); MONO % 10 % (0-9); NEUT # 4.4 x10^3uL (1.8-7.7); NEUT % 67 % (31-73); PLATELET COUNT 206 x10^3/uL (140-400); RED CELL DISTRIBUTION WIDTH 15.1 % (11.5-14.5); WHITE BLOOD COUNT 6.7 x10^3/uL (4.0-11.0)
[2020-09-18 08:52] VITALS: BP 120/69
[2020-09-18] MEDS: PREGABALIN 75 MG CAPSULE PO SCH (08:53)
[2020-09-18] MEDS ORDERED: hydroCHLOROthiazide 12.5 MG CAPSULE PO SCH (09:00)
[2020-09-18] MEDS ORDERED: METOPROLOL SUCC 24HR ER 50 MG TAB.ER.24H. PO SCH (09:00)
[2020-09-18] MEDS ORDERED: FUROSEMIDE 40 MG TABLET PO SCH (09:00)
[2020-09-18] MEDS ORDERED: TAMSULOSIN 0.4 MG CAP.ER.24H. PO SCH (09:00)
--- NOTE | 2020-09-18 09:12 | RAD ---
CTA OF THE CHEST WITH AND WITHOUT CONTRAST CT STUDY OF THE ABDOMEN AND PELVIS WITHOUT CONTRAST Clinical indications: Shortness of breath, chest and abdomen pain. Technique: Noncontrast helical CT scanning of the abdomen and pelvis was performed. Without contrast, the sensitivity to detect organ pathology and GI tract pathology is decreased. After IV infusion of 98 cc of Omnipaque 300, helical CT scanning of the chest was performed using the CTA pulmonary emboli sm protocol. Coronal and sagittal MIP reconstructions were generated. PQRS compliance Statement One or more of the following individualized dose reduction techniques were utilized for this study: 1. Automated exposure control 2. Adjustment of the mA and/or kV according to patient size 3. Use of iterative reconstruction technique Comparison: Chest CTA dated May 01, 2018. Abdomen and pelvis CT dated April 20, 2008. CHEST CTA: No pulmonary embolism is evident. No focal aneurysmal dilatation or dissection thoracic ao rta is seen. The heart size is at the upper limits normal. No pericardial effusion is seen. No enlarg ed thoracic lymphadenopathy is seen. No lung mass or lung consolidation or pleural effusion or pneumo thorax is seen. Small lung nodule within the posterior lateral aspect of the right upper lobe is unch anged consistent with a benign finding. The proximal bronchial tree is patent. No lytic process is se en. IMPRESSION: No pulmonary embolism. No acute lung infiltrate. There is fullness of the upper anterior left chest wall underneath a port. This could represent asymm etry of the muscle or hematoma or inflammation of the muscle if there are clinical findings of such. ABDOMEN AND PELVIS CT: The liver and spleen and pancreas are homogeneous on this noncontrast study. T he spleen is not enlarged. The gallbladder is normal. No extra hepatic biliary ductal dilatation is s een. No adrenal mass is evident. No hydronephrosis or hydroureter or urinary tract stone is evident. Urinary bladder is not abnormally distended. The prostate gland is mildly enlarged and indents the fl oor of the urinary bladder. It measures 5.4 cm transversely. No focal aneurysmal dilatation of the ab dominal aorta is seen. No enlarged abdominal or pelvic lymphadenopathy is seen. The appendix is alyssa l. The terminal ileum is unremarkable. No obstructive bowel pattern is seen. There is mild fecal rete ntion within the rectosigmoid region. There is wall thickening of the colon from the distal ascending colon through to the proximal sigmoid colon. No pericolonic inflammation is seen. No free fluid or f ree air or mesenteric edema is seen. No lytic process is seen. IMPRESSION: Wall thickening of the colon from the distal ascending colon down to the proximal sigmoid colon. This may be due to incomplete distention but may be seen with colitis if there are clinical f indings of such. No other acute abnormality. Prostate gland is mildly enlarged. Electronically signed by: Celso Dunaway MD (09/18/2020 9:10 AM) [id number]
[2020-09-18 09:21] LABS: BACTERIA,URINE 0 /HPF (0-FEW); BILIRUBIN,URINE NEG (NEG); CLARITY,URINE CLEAR; COLOR,URINE YELLOW; GLUCOSE,URINE NEG (NEG); NITRITE,URINE NEG (NEG); RBC,URINE OCC /HPF (0-2); SQUAMOUS EPITHELIAL CELL,UR FEW /LPF; UROBILINOGEN,URINE 0.2 mg/dL (0.2 mg/dL); WBC,URINE OCC /HPF (0-4)
[2020-09-18] MEDS ORDERED: METR500T PO (10:20)
[2020-09-18] MEDS ORDERED: metroNIDAZOLE 500 MG TABLET PO SCH (10:30)
--- NOTE | 2020-09-18 12:28 | NUR ---
Discharge note Pt discharged at 1226 via ambulation accompanied by family member. pt given written and verbal instructions with topics including medications and follow up care with verbal statement of understanding given.
[2020-09-19 02:06] LABS: HEMOGLOBIN A1C 5.7 % (4.8-5.6)
--- NOTE | 2020-09-21 19:55 | DS ---
DATE OF DISCHARGE: 09/18/2020 HOSPITAL COURSE: This is a 65-year-old male. He was brought in for change in mental status. The patient was noted by family to have extreme problems with walking as well as general personality changes acutely. The patient also had some night sweats, and he was brought in for further evaluation and treatment of the change in mental status. The patient was brought in. Scans were performed. His CT scan did show an area of encephalomalacia involving the right frontal lobe, which may have been causing some of his personality changes. An MRI be followed up as an outpatient. The patient had a positive D-dimer, and a CTA showed wall thickening of the colon from the distal ascending colon down to the proximal colon with incomplete distention, probable colitis. The CT of the chest was negative for infiltrate or pulmonary emboli. The patient was placed on medication for the colitis, and he will be scheduled for a colonoscopy as an outpatient. IMPRESSION: Change in mental status, colitis, encephalomalacia, chronic atrial fibrillation, chronic anticoagulation. The patient will be kept on a regular diet, decreased activity, no driving and then have him return after he has his MRI of his brain as well as colonoscopy. See MANOJ. ROSHNI/FELY DR: ROSHNI/daniela TID: [id number]
== END 2020-09-18 12:31 | disposition home or self-care (01) | DRG 391 ==
LOC: 1 SOUTH 11:30
PROVIDERS: ADMIT Family Medicine; ATTEND Family Medicine
DX: K52.9 Noninfective gastroenteritis and colitis, unspecified (principal); G93.41 Metabolic encephalopathy; I48.20 Chronic atrial fibrillation, unspecified; F68.8 Other specified disorders of adult personality and behavior; G93.89 Other specified disorders of brain; Z79.01 Long term (current) use of anticoagulants
CPT/HCPCS: 36415; 70450; 71275; 74176; 80053; 81001; 82607; 83036; 83605; 83735; 84443; 85025; 85610; 86140; 87040; 93005; J7030

== ENCOUNTER → 2020-09-27 | Outpatient (CLI) | payer MEDICARE, OTHER ==
[2020-09-18 08:52] VITALS: BP 120/69
[~2020-09-27] MED LIST changes: +METR500T PO
[2020-09-27 13:46] LABS: ALBUMIN 3.5 g/dL (3.4-5.0); ALBUMIN/GLOBULIN RATIO 1.1 (1.0-1.7); CALCIUM 8.6 mg/dL (8.5-10.1); CREATININE 0.9 mg/dL (0.7-1.3); GFR 84.2; POTASSIUM 4.2 mmol/L (3.5-5.1); TOTAL BILIRUBIN 0.8 mg/dL (0.2-1.0); TOTAL PROTEIN 6.8 g/dL (6.4-8.2)
== END ==
LOC: LAB 10:46
PROVIDERS: ATTEND Internal Medicine Cardiovascular Disease
DX: Z13.220 Encounter for screening for lipoid disorders (principal); I10 Essential (primary) hypertension; I48.21 Permanent atrial fibrillation; Z79.01 Long term (current) use of anticoagulants
CPT/HCPCS: 36415; 80053; 80061

== ENCOUNTER → 2021-03-21 | Outpatient (CLI) | payer MEDICARE, OTHER ==
[~2021-03-21] MED LIST changes: +POTA-121 PO; -POTA20TA4 PO
--- NOTE | 2021-03-21 16:14 | RAD ---
EXAMINATION: CT LEFT SHOULDER WITHOUT IV CONTRAST CLINICAL HISTORY: Left shoulder pain TECHNIQUE: Noncontrast serial axial images obtained through the left shoulder with sagittal and coron al reconstructions. CT Dose Reduction Employed: One or more of the following individualized dose reduction techniques yanni e utilized for this examination: 1. Automated exposure control 2. Adjustment of the mA and/or kV ac cording to patient size 3. Use of iterative reconstruction technique. COMPARISON: None FINDINGS: Joint spaces and alignment in the glenohumeral joint maintained with tiny marginal osteophytes. Mild acromioclavicular degenerative changes. No acute fracture. Suspected chronically torn and retracted long head biceps tendon, incompletely evaluated. Muscles oth erwise unremarkable on limited evaluation. No significant joint effusion. Prominent left axillary lym ph nodes, nonspecific but possibly reactive. Partially visualized left-sided cardiac pacemaker. IMPRESSION: Mild glenohumeral and acromioclavicular degenerative changes. Suspected chronically torn and retracted long head biceps tendon, incompletely evaluated. Correlate baylee nuñez. Electronically signed by: Leon Valentin DO (03/21/2021 4:11 PM) [id number]
== END ==
LOC: CT 13:41
PROVIDERS: ATTEND Family Medicine
DX: M19.012 Primary osteoarthritis, left shoulder (principal); M25.712 Osteophyte, left shoulder
CPT/HCPCS: 73200

== ENCOUNTER → 2021-04-12 | Outpatient (CLI) | payer MEDICARE, OTHER | LOC: LAB 12:53 | PROVIDERS: ATTEND Internal Medicine Cardiovascular Disease | DX: I48.21 Permanent atrial fibrillation (principal); Z79.01 Long term (current) use of anticoagulants | CPT/HCPCS: 36415; 85610 ==

== ENCOUNTER → 2021-04-20 | Outpatient (CLI) | payer MEDICARE, OTHER | LOC: LAB 10:20 | PROVIDERS: ATTEND Internal Medicine Cardiovascular Disease | DX: I48.21 Permanent atrial fibrillation (principal); Z79.01 Long term (current) use of anticoagulants | CPT/HCPCS: 36415; 85610 ==

== ENCOUNTER → 2021-05-11 | Outpatient (CLI) | payer MEDICARE, OTHER | LOC: LAB 11:50 | PROVIDERS: ATTEND Internal Medicine Cardiovascular Disease | DX: Z79.01 Long term (current) use of anticoagulants (principal) | CPT/HCPCS: 36415; 85610 ==

== ENCOUNTER → 2021-05-22 | Outpatient (CLI) | payer MEDICARE, OTHER | LOC: LAB 15:47 | PROVIDERS: ATTEND Internal Medicine Cardiovascular Disease | DX: I48.21 Permanent atrial fibrillation (principal); Z79.01 Long term (current) use of anticoagulants | CPT/HCPCS: 36415; 85610 ==

== ENCOUNTER → 2021-05-29 | Outpatient (CLI) | payer MEDICARE, OTHER | LOC: LAB 12:25 | PROVIDERS: ATTEND Internal Medicine Cardiovascular Disease | DX: I48.21 Permanent atrial fibrillation (principal); Z79.01 Long term (current) use of anticoagulants | CPT/HCPCS: 36415; 85610 ==

== ENCOUNTER → 2021-06-09 | Outpatient (CLI) | payer MEDICARE, OTHER | LOC: LAB 13:14 | PROVIDERS: ATTEND Internal Medicine Cardiovascular Disease | DX: I82.A19 Acute embolism and thrombosis of unspecified axillary vein (principal) | CPT/HCPCS: 36415; 85610 ==

== ENCOUNTER → 2021-06-22 | Outpatient (CLI) | payer MEDICARE, OTHER | LOC: LAB 12:09 | PROVIDERS: ATTEND Internal Medicine Cardiovascular Disease | DX: I48.21 Permanent atrial fibrillation (principal); Z79.01 Long term (current) use of anticoagulants | CPT/HCPCS: 36415; 85610 ==

== ENCOUNTER → 2021-07-03 | Outpatient (CLI) | payer MEDICARE, OTHER | LOC: LAB 12:14 | PROVIDERS: ATTEND Family Medicine | DX: I48.21 Permanent atrial fibrillation (principal); Z79.01 Long term (current) use of anticoagulants | CPT/HCPCS: 36415; 85610 ==

== ENCOUNTER → 2021-08-02 | Outpatient (CLI) | payer MEDICARE, OTHER ==
[2021-08-02 15:16] LABS: CALCIUM 8.7 mg/dL (8.5-10.1); CREATININE 0.8 mg/dL (0.7-1.3); GFR 96.1; POTASSIUM 4.5 mmol/L (3.5-5.1)
== END ==
LOC: LAB 14:19
PROVIDERS: ATTEND Internal Medicine Cardiovascular Disease
DX: I42.8 Other cardiomyopathies (principal)
CPT/HCPCS: 36415; 80048

== ENCOUNTER → 2021-08-14 | Outpatient (CLI) | payer MEDICARE, OTHER | LOC: LAB 11:47 | PROVIDERS: ATTEND Internal Medicine Cardiovascular Disease | DX: I48.21 Permanent atrial fibrillation (principal) | CPT/HCPCS: 36415; 85610 ==

== ENCOUNTER → 2021-09-14 | Outpatient (CLI) | payer MEDICARE, OTHER | LOC: LAB 10:54 | PROVIDERS: ATTEND Internal Medicine Cardiovascular Disease | DX: I48.21 Permanent atrial fibrillation (principal) | CPT/HCPCS: 36415; 85610 ==